=== PATIENT | male | born 1935 | race Caucasian/White ===

== ENCOUNTER 2017-11-01 02:17 | Emergency (ER) | payer OTHER ==
[~2017-11-01] VITALS: Ht 177.8 cm; Wt 63.5 kg
[~2017-11-01 02:17] MED LIST: AUGMENTIN 875875 MG PO; BACTRIM DS TAB1 EACH PO; CIPROFLOXACIN500 M1 PO; DIFLUCAN200 MG PO; EPOGEN2000 UNIT/ SUBQ; NORCO 5-325 TA1 EACH PO; PHENERGAN 25 MG25 M1 PO; PROTONIX40 M1 PO; SENOKOT-S1 TA1 PO; TYLENOL325 MG PO
[2017-11-01] MEDS ORDERED: OXYBUTYNIN 5 MG5 M2 PO (02:24)
[2017-11-01] MEDS ORDERED: IRON325 PO (02:24)
[2017-11-01 04:07] VITALS: BP 151/50
== END 2017-11-01 04:11 | disposition home or self-care (01) ==
LOC: M.ERS 02:17
DX: Z46.6 Encounter for fitting and adjustment of urinary device (principal)

== ENCOUNTER 2017-12-05 21:28 | Emergency (ER) | payer OTHER ==
[~2017-12-05] VITALS: Ht 180.3 cm; Wt 65.8 kg
[~2017-12-05 21:28] MED LIST changes: +IRON325 PO; +OXYBUTYNIN 5 MG5 M2 PO
[2017-12-05 23:17] VITALS: BP 118/78
== END 2017-12-05 23:19 | disposition home or self-care (01) ==
LOC: M.ERS 21:28
DX: T83.9XXA Unspecified complication of genitourinary prosthetic device, implant and graft, initial encounter (principal); Y92.89 Other specified places as the place of occurrence of the external cause

== ENCOUNTER 2017-12-31 02:11 | Emergency (ER) | payer OTHER ==
[~2017-12-31] VITALS: Ht 180.3 cm; Wt 70.3 kg
[2017-12-31 02:42] VITALS: BP 112/78
== END 2017-12-31 02:47 | disposition home or self-care (01) ==
LOC: M.ERS 02:11
DX: T83.098A Other mechanical complication of other urinary catheter, initial encounter (principal); Y84.8 Other medical procedures as the cause of abnormal reaction of the patient, or of later complication, without mention of misadventure at the time of the procedure; Y92.89 Other specified places as the place of occurrence of the external cause

== ENCOUNTER 2018-01-20 11:59 | Emergency (ER) | payer OTHER ==
[~2018-01-20] VITALS: Ht 180.3 cm; Wt 68.2 kg
[2018-01-20 13:26] LABS: ABSOLUTE EOSINOPHILS 0.1 thou/uL (0.0-0.7); ABSOLUTE MONOCYTES 0.6 thou/uL (0.0-1.2); ABSOLUTE NEUTROPHILS 2.8 thou/uL (1.6-8.1); BASOPHILS 0.5 %; HEMATOCRIT 30.3 % (42.0-52.0); HEMOGLOBIN 10.1 gm/dL (14.0-18.0); LYMPHOCYTES 22.1 %; MCH 28.5 pg (26.0-34.0); MCHC 33.2 g/dL (28.0-37.0); MCV 85.9 fL (80.0-100.0); MONOCYTES 12.5 %; MPV 7.5 fl. (7.2-11.1); NUCLEATED RBCS 0 /100WBC; PLATELET COUNT* 192 thou/uL (150-400); POLYS 62.9 %; RBC 3.53 mil/uL (4.50-6.00); RDW-CV 14.8 % (10.5-14.5); WBC 4.5 thou/uL (4.0-11.0)
[2018-01-20 13:36] LABS: CALCIUM 8.8 mg/dL (8.5-10.1); CREATININE 2.9 mg/dL (0.6-1.3)
[2018-01-20 13:39] LABS: POTASSIUM 5.2 mmol/L (3.5-5.1)
[2018-01-20 13:41] LABS: ALBUMIN 3.4 g/dL (3.4-5.0); TOTAL BILIRUBIN 0.2 mg/dL (<0.1-1.0); TOTAL PROTEIN 7.5 g/dL (6.4-8.2)
[2018-01-20 17:14] LABS: URINE BILIRUBIN NEGATIVE (Negative); URINE BLOOD 3+ (Negative); URINE CLARITY CLOUDY; URINE COLOR RED; URINE GLUCOSE-RANDOM NEGATIVE (Negative); URINE KETONES NEGATIVE (Negative); URINE PROTEIN 3+ (Negative)
[2018-01-20 17:16] LABS: URINE LEUKOCYTES-REFLEX 3+ (Negative); URINE NITRITE-REFLEX POSITIVE (Negative)
[2018-01-20 17:24] LABS: SQUAMOUS 4-10 Moderate /LPF (0-3)
[2018-01-20 17:25] LABS: BACTERIA-REFLEX 1-9 Few /HPF (None Seen); CASTS None Seen /LPF (None Seen); CRYSTALS None Seen /LPF (None Seen); URINE RBC 3-10 Few /HPF (0-2); URINE WBC-REFLEX 0-5 Rare /HPF (0-5)
[2018-01-20] MEDS ORDERED: AUGMENTIN 875-1 EACH PO (18:53)
[2018-01-20 19:37] VITALS: BP 135/64
== END 2018-01-20 19:38 | disposition home or self-care (01) ==
LOC: M.ERS 11:59
PROVIDERS: Nurse Practitioner Family
DX: T83.9XXA Unspecified complication of genitourinary prosthetic device, implant and graft, initial encounter (principal); N39.0 Urinary tract infection, site not specified; X58.XXXA Exposure to other specified factors, initial encounter

== ENCOUNTER 2018-02-14 06:11 | Emergency (ER) | payer OTHER ==
[~2018-02-14] VITALS: Ht 180.3 cm; Wt 67.5 kg
[~2018-02-14 06:11] MED LIST changes: +AUGMENTIN 875-1 EACH PO
[2018-02-14 07:15] LABS: ABSOLUTE EOSINOPHILS 0.2 thou/uL (0.0-0.7); ABSOLUTE MONOCYTES 0.4 thou/uL (0.0-1.2); ABSOLUTE NEUTROPHILS 2.1 thou/uL (1.6-8.1); EOSINOPHILS 6.2 %; HEMATOCRIT 30.5 % (42.0-52.0); HEMOGLOBIN 10.2 gm/dL (14.0-18.0); MCH 28.5 pg (26.0-34.0); MCHC 33.4 g/dL (28.0-37.0); MCV 85.3 fL (80.0-100.0); MONOCYTES 10.8 %; MPV 7.6 fl. (7.2-11.1); NUCLEATED RBCS 0 /100WBC; PLATELET COUNT* 163 thou/uL (150-400); RBC 3.57 mil/uL (4.50-6.00); RDW-CV 14.4 % (10.5-14.5); WBC 3.7 thou/uL (4.0-11.0)
[2018-02-14 07:28] LABS: CALCIUM 8.8 mg/dL (8.5-10.1); CREATININE 2.8 mg/dL (0.6-1.3); POTASSIUM 4.5 mmol/L (3.5-5.1)
[2018-02-14 07:32] LABS: ALBUMIN 3.4 g/dL (3.4-5.0); TOTAL BILIRUBIN 0.3 mg/dL (<0.1-1.0); TOTAL PROTEIN 7.2 g/dL (6.4-8.2)
[2018-02-14 07:48] VITALS: BP 133/56
== END 2018-02-14 07:49 | disposition home or self-care (01) ==
LOC: M.ERS 06:11
PROVIDERS: Personal Emergency Response Attendant
DX: T83.098A Other mechanical complication of other urinary catheter, initial encounter (principal); Y84.8 Other medical procedures as the cause of abnormal reaction of the patient, or of later complication, without mention of misadventure at the time of the procedure; Y92.89 Other specified places as the place of occurrence of the external cause

== ENCOUNTER 2018-04-02 17:14 | Emergency (ER) | payer OTHER ==
[~2018-04-02] VITALS: Ht 182.9 cm; Wt 68.0 kg
[2018-04-02] MEDS ORDERED: VITAMIN B122500 MCG PO (17:20)
[2018-04-02] MEDS ORDERED: KEFLEX500 M1 PO (18:18)
[2018-04-02 18:24] VITALS: BP 137/64
== END 2018-04-02 18:34 | disposition home or self-care (01) ==
LOC: M.ERS 17:14
DX: Z46.6 Encounter for fitting and adjustment of urinary device (principal); N39.0 Urinary tract infection, site not specified

== ENCOUNTER 2018-04-27 18:06 | Emergency (ER) | payer OTHER ==
[~2018-04-27] VITALS: Ht 180.3 cm; Wt 68.0 kg
[~2018-04-27 18:06] MED LIST changes: +KEFLEX500 M1 PO; +VITAMIN B122500 MCG PO
[2018-04-27 18:47] VITALS: BP 131/57
== END 2018-04-27 18:48 | disposition home or self-care (01) ==
LOC: M.ERS 18:06
DX: T83.038A Leakage of other urinary catheter, initial encounter (principal)

== ENCOUNTER 2018-09-06 17:04 | Emergency (ER) | payer OTHER ==
[~2018-09-06] VITALS: Ht 180.3 cm; Wt 68.1 kg
[2018-09-06 17:40] VITALS: BP 166/77
== END 2018-09-06 17:44 | disposition home or self-care (01) ==
LOC: M.ERS 17:04
DX: T83.098A Other mechanical complication of other urinary catheter, initial encounter (principal); Y84.8 Other medical procedures as the cause of abnormal reaction of the patient, or of later complication, without mention of misadventure at the time of the procedure; Y92.89 Other specified places as the place of occurrence of the external cause

== ENCOUNTER 2018-09-28 16:01 | Emergency (ER) | payer OTHER ==
[~2018-09-28] VITALS: Ht 180.3 cm; Wt 68.5 kg
[2018-09-28 16:44] LABS: URINE BILIRUBIN NEGATIVE (Negative); URINE BLOOD 3+ (Negative); URINE CLARITY CLOUDY; URINE COLOR YELLOW; URINE GLUCOSE-RANDOM NEGATIVE (Negative); URINE KETONES NEGATIVE (Negative); URINE LEUKOCYTES-REFLEX 3+ (Negative); URINE NITRITE-REFLEX NEGATIVE (Negative); URINE PROTEIN 2+ (Negative); URINE UROBILINOGEN 0.2 E.U./dl (0.2-1.0)
[2018-09-28 16:52] LABS: SQUAMOUS 0-3 Few /LPF (0-3); URINE RBC >20 Many /HPF (0-2); URINE WBC-REFLEX >25 Many /HPF (0-5)
[2018-09-28 16:53] LABS: BACTERIA-REFLEX 1-9 Few /HPF (None Seen); CASTS None Seen /LPF (None Seen); CRYSTALS None Seen /LPF (None Seen); MUCUS None Seen strn/LPF (None Seen); WBC CLUMPS Moderate (None Seen)
[2018-09-28] MEDS ORDERED: KEFLEX500 M1 PO (17:36)
[2018-09-28 17:58] VITALS: BP 150/50
== END 2018-09-28 18:00 | disposition home or self-care (01) ==
LOC: M.ERS 16:01
PROVIDERS: Nurse Practitioner Family
DX: T83.098A Other mechanical complication of other urinary catheter, initial encounter (principal); N39.0 Urinary tract infection, site not specified; Y84.9 Medical procedure, unspecified as the cause of abnormal reaction of the patient, or of later complication, without mention of misadventure at the time of the procedure; Y92.89 Other specified places as the place of occurrence of the external cause

== ENCOUNTER 2019-01-09 22:52 | Emergency (ER) | payer OTHER ==
[~2019-01-09] VITALS: Ht 182.9 cm; Wt 68.0 kg
[2019-01-09 23:36] LABS: URINE BILIRUBIN NEGATIVE (Negative); URINE BLOOD 3+ (Negative); URINE CLARITY CLOUDY; URINE COLOR YELLOW; URINE GLUCOSE-RANDOM NEGATIVE (Negative); URINE KETONES NEGATIVE (Negative); URINE NITRITE-REFLEX NEGATIVE (Negative); URINE PROTEIN 2+ (Negative); URINE UROBILINOGEN 0.2 E.U./dl (0.2-1.0)
[2019-01-09 23:45] LABS: URINE LEUKOCYTES-REFLEX 3+ (Negative)
[2019-01-10 00:37] LABS: CASTS None Seen /LPF (None Seen); SQUAMOUS NONE SEEN /LPF (0-3)
[2019-01-10 00:38] LABS: URINE WBC-REFLEX >25 Many /HPF (0-5)
[2019-01-10 00:39] LABS: BACTERIA-REFLEX >30 Many /HPF (None Seen); CRYSTALS None Seen /LPF (None Seen)
[2019-01-10] MEDS ORDERED: BACTRIM DS TAB1 EACH PO (00:40)
[2019-01-10 00:54] VITALS: BP 158/78
== END 2019-01-10 00:42 | disposition home or self-care (01) ==
LOC: M.ERS 22:52
PROVIDERS: Physician Assistant
DX: T83.090A Other mechanical complication of cystostomy catheter, initial encounter (principal); Y84.8 Other medical procedures as the cause of abnormal reaction of the patient, or of later complication, without mention of misadventure at the time of the procedure; Y92.89 Other specified places as the place of occurrence of the external cause

== ENCOUNTER 2019-02-08 04:50 | Emergency (ER) | payer OTHER ==
[~2019-02-08] VITALS: Ht 180.3 cm; Wt 67.1 kg
[2019-02-08 04:56] VITALS: BP 130/67
[2019-02-08] MEDS ORDERED: VITAMIN D3400 UNIT (04:59)
== END 2019-02-08 05:30 | disposition home or self-care (01) ==
LOC: M.ERS 04:50
DX: T83.098A Other mechanical complication of other urinary catheter, initial encounter (principal)

== ENCOUNTER 2019-02-28 06:30 | Emergency (ER) | payer OTHER ==
[~2019-02-28] VITALS: Ht 180.3 cm; Wt 68.0 kg
[~2019-02-28 06:30] MED LIST changes: +VITAMIN D3400 UNIT
[2019-02-28 07:55] LABS: URINE BILIRUBIN NEGATIVE (Negative); URINE BLOOD 3+ (Negative); URINE CLARITY SL CLOUDY; URINE COLOR STRAW; URINE GLUCOSE-RANDOM NEGATIVE (Negative); URINE KETONES NEGATIVE (Negative); URINE NITRITE-REFLEX NEGATIVE (Negative); URINE PROTEIN 2+ (Negative); URINE SPECIFIC GRAVITY 1.015 (1.005-1.030); URINE UROBILINOGEN 0.2 E.U./dl (0.2-1.0)
[2019-02-28 07:56] LABS: URINE LEUKOCYTES-REFLEX 3+ (Negative)
[2019-02-28] MEDS ORDERED: AUGMENTIN 875-1 EACH PO (08:03)
[2019-02-28 08:10] VITALS: BP 138/51
[2019-02-28 08:10] LABS: BACTERIA-REFLEX 1-9 Few /HPF (None Seen); CASTS None Seen /LPF (None Seen); CRYSTALS None Seen /LPF (None Seen); MUCUS 0-3 Light strn/LPF (None Seen); SQUAMOUS 0-3 Few /LPF (0-3); URINE RBC >20 Many /HPF (0-2)
== END 2019-02-28 08:12 | disposition home or self-care (01) ==
LOC: M.ERS 06:30
PROVIDERS: Emergency Medicine
DX: T83.098A Other mechanical complication of other urinary catheter, initial encounter (principal); Y84.8 Other medical procedures as the cause of abnormal reaction of the patient, or of later complication, without mention of misadventure at the time of the procedure; Y92.89 Other specified places as the place of occurrence of the external cause

== ENCOUNTER 2019-03-14 09:46 | Emergency (ER) | payer OTHER ==
[~2019-03-14] VITALS: Ht 180.3 cm; Wt 72.6 kg
[2019-03-14 10:42] VITALS: BP 145/80
== END 2019-03-14 10:44 | disposition home or self-care (01) ==
LOC: M.ERS 09:46
DX: T83.098A Other mechanical complication of other urinary catheter, initial encounter (principal)

== ENCOUNTER 2019-11-19 07:00 | Emergency (ER) | payer OTHER ==
[~2019-11-19] VITALS: Ht 180.3 cm; Wt 61.2 kg
[2019-11-19 07:36] VITALS: BP 134/93
== END 2019-11-19 07:38 | disposition home or self-care (01) ==
LOC: M.ERS 07:00
DX: T83.010A Breakdown (mechanical) of cystostomy catheter, initial encounter (principal); Y92.89 Other specified places as the place of occurrence of the external cause

== ENCOUNTER 2021-07-18 06:07 | Inpatient (IN) | payer OTHER ==
[~2021-07-18] VITALS: Ht 185.4 cm; Wt 73.0 kg
[~2021-07-18 06:07] MED LIST changes: +IRON 100 PLUS1 EACH PO
[2021-07-18 07:14] LABS: HEMATOCRIT 29.7 % (42.0-52.0); HEMOGLOBIN 9.6 gm/dL (14.0-18.0); MCH 27.5 pg (26.0-34.0); MCHC 32.5 g/dL (28.0-37.0); MCV 84.8 fL (80.0-100.0); RBC 3.51 mil/uL (4.50-6.00); RDW-CV 14.7 % (10.5-14.5); WBC 6.7 thou/uL (4.0-11.0)
[2021-07-18 07:23] LABS: CALCIUM 8.8 mg/dL (8.5-10.1); CREATININE 3.2 mg/dL (0.6-1.3); POTASSIUM 5.4 mmol/L (3.5-5.1)
--- NOTE | 2021-07-18 11:17 | EKG ---
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 : 1935 Requested By: Elmer Andrade Order Number: [id number] Reading MD: Miquel Barrientos Measurements Intervals [place] Rate: 77 P: 51 [place]: 180 QRS: 63 QRSD: 82 T: 55 QT: 375 QTc: 425 Interpretive Statements Sinus rhythm Abnormal R-wave progression, early transition Compared to ECG 04/24/2017 22:39:54 Left ventricular hypertrophy no longer present Electronically Signed On 07-18-2021 11:16:56 CDT by Miquel Barrientos [email or web address] <ELECTRONICALLY SIGNED> By: Miquel Barrientos MD, FACC 07/18/21 1116 0 0 Miquel Barrientos MD, [facility] /EPI
[2021-07-18 14:00] VITALS: BP 134/68
[2021-07-18 20:00] VITALS: BP 140/72
[2021-07-19] VITALS (11 sets, daily range): BP systolic 115–149; BP diastolic 37–66
[2021-07-19 20:24] LABS: HEMATOCRIT 34.8 % (42.0-52.0); HEMOGLOBIN 11.4 gm/dL (14.0-18.0); MCH 27.2 pg (26.0-34.0); MCHC 32.7 g/dL (28.0-37.0); MCV 83.1 fL (80.0-100.0); MPV 7.8 fl. (7.2-11.1); RBC 4.18 mil/uL (4.50-6.00); RDW-CV 14.9 % (10.5-14.5); WBC 11.7 thou/uL (4.0-11.0)
[2021-07-19 20:37] LABS: ALBUMIN 2.4 g/dL (3.4-5.0); CALCIUM 8.7 mg/dL (8.5-10.1); CREATININE 3.6 mg/dL (0.6-1.3); MAGNESIUM 2.6 mg/dL (1.8-2.4); PHOSPHORUS* 4.3 mg/dL (2.5-4.9); POTASSIUM 5.5 mmol/L (3.5-5.1); TOTAL BILIRUBIN 0.4 mg/dL (<0.1-1.0); TOTAL PROTEIN 6.5 g/dL (6.4-8.2)
[2021-07-19 22:59] LABS: URINE BILIRUBIN NEGATIVE (Negative); URINE BLOOD 3+ (Negative); URINE CLARITY SL CLOUDY; URINE COLOR RED; URINE GLUCOSE-RANDOM TRACE (Negative); URINE KETONES NEGATIVE (Negative); URINE LEUKOCYTES-REFLEX TRACE (Negative); URINE NITRITE-REFLEX NEGATIVE (Negative); URINE PROTEIN 3+ (Negative); URINE SPECIFIC GRAVITY <= 1.005 (1.005-1.030); URINE UROBILINOGEN 0.2 E.U./dl (0.2-1.0)
[2021-07-19 23:09] LABS: SQUAMOUS 0-3 Few /LPF (0-3)
[2021-07-19 23:10] LABS: BACTERIA-REFLEX 1-9 Few /HPF (None Seen); URINE RBC >20 Many /HPF (0-2); URINE WBC-REFLEX 0-5 Rare /HPF (0-5)
[2021-07-19 23:11] LABS: CASTS None Seen /LPF (None Seen); CRYSTALS None Seen /LPF (None Seen); MUCUS 0-3 Light strn/LPF (None Seen)
[2021-07-20] VITALS (18 sets, daily range): BP systolic 98–127; BP diastolic 43–90
[2021-07-20 05:04] LABS: CALCIUM 8.3 mg/dL (8.5-10.1); CREATININE 3.7 mg/dL (0.6-1.3); POTASSIUM 5.8 mmol/L (3.5-5.1)
[2021-07-20 10:35] LABS: HEMATOCRIT 32.6 % (42.0-52.0); HEMOGLOBIN 10.4 gm/dL (14.0-18.0); MCH 26.8 pg (26.0-34.0); MCHC 31.9 g/dL (28.0-37.0); MCV 84.2 fL (80.0-100.0); MPV 7.5 fl. (7.2-11.1); NUCLEATED RBCS 0 /100WBC; PLATELET COUNT* 276 thou/uL (150-400); RBC 3.87 mil/uL (4.50-6.00); WBC 11.4 thou/uL (4.0-11.0)
[2021-07-20 10:54] LABS: CALCIUM 8.5 mg/dL (8.5-10.1); MAGNESIUM 2.9 mg/dL (1.8-2.4); PHOSPHORUS* 4.9 mg/dL (2.5-4.9); TOTAL BILIRUBIN 0.3 mg/dL (<0.1-1.0)
[2021-07-20 11:31] LABS: ABSOLUTE LYMPHOCYTES 0.6 thou/uL (0.8-5.3); ABSOLUTE MONOCYTES 0.2 thou/uL (0.0-1.2); ABSOLUTE NEUTROPHILS 10.6 thou/uL (1.6-8.1); ANISOCYTOSIS 1+; PLATELET ESTIMATE ADEQUATE; POIKILOCYTOSIS 1+
[2021-07-21 00:31] VITALS: BP 147/63
[2021-07-21 04:00] VITALS: BP 140/50
[2021-07-21 04:38] LABS: ABSOLUTE LYMPHOCYTES 0.2 thou/uL (0.8-5.3); ABSOLUTE MONOCYTES 0.3 thou/uL (0.0-1.2); ABSOLUTE NEUTROPHILS 9.3 thou/uL (1.6-8.1); BASOPHILS 0.1 %; HEMATOCRIT 29.1 % (42.0-52.0); HEMOGLOBIN 9.5 gm/dL (14.0-18.0); LYMPHOCYTES 2.4 %; MCH 27.6 pg (26.0-34.0); MCHC 32.6 g/dL (28.0-37.0); MCV 84.8 fL (80.0-100.0); MPV 7.8 fl. (7.2-11.1); NUCLEATED RBCS 0 /100WBC; PLATELET COUNT* 249 thou/uL (150-400); POLYS 94.5 %; RBC 3.43 mil/uL (4.50-6.00); RDW-CV 15.4 % (10.5-14.5); WBC 9.8 thou/uL (4.0-11.0)
[2021-07-21 04:45] LABS: CREATININE 4.8 mg/dL (0.6-1.3)
[2021-07-21 04:54] LABS: POTASSIUM 6.1 mmol/L (3.5-5.1)
[2021-07-21 08:00] VITALS: BP 140/66
--- NOTE | 2021-07-21 10:24 | EKG ---
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 : 1935 Requested By: Magy Fragoso Order Number: [id number] Reading MD: Miquel Barrientos Measurements Intervals [place] Rate: 123 P: 56 [place]: 160 QRS: 51 QRSD: 92 T: 42 QT: 312 QTc: 447 Interpretive Statements Sinus tachycardia Low voltage, extremity and precordial leads Compared to ECG 07/18/2021 07:11:10 Low QRS voltage now present Sinus rhythm no longer present Electronically Signed On 07-21-2021 10:24:30 CDT by Miquel Barrientos [email or web address] <ELECTRONICALLY SIGNED> By: Miquel Barrientos MD, FACC 07/21/21 1024 1548 1548 Miquel Barrientos MD, [facility] /EPI
[2021-07-21 20:53] LABS: CALCIUM 9.3 mg/dL (8.5-10.1); CREATININE 5.2 mg/dL (0.6-1.3); POTASSIUM 5.6 mmol/L (3.5-5.1)
[2021-07-21 22:00] VITALS: BP 135/60
[2021-07-22] VITALS: BP 144/70
[2021-07-22 04:00] VITALS: BP 159/69
[2021-07-22 07:48] LABS: CREATININE 5.3 mg/dL (0.6-1.3); POTASSIUM 5.8 mmol/L (3.5-5.1)
[2021-07-22 08:37] VITALS: BP 154/67
[2021-07-22 12:23] VITALS: BP 154/77
[2021-07-22 16:06] VITALS: BP 165/69
[2021-07-22 20:00] VITALS: BP 168/66
[2021-07-23 00:31] VITALS: BP 168/76
[2021-07-23 03:54] LABS: HEMATOCRIT 27.1 % (42.0-52.0); MCH 27.4 pg (26.0-34.0); MCHC 33.2 g/dL (28.0-37.0); MCV 82.6 fL (80.0-100.0); NUCLEATED RBCS 0 /100WBC; PLATELET COUNT* 254 thou/uL (150-400); RBC 3.28 mil/uL (4.50-6.00); RDW-CV 15.3 % (10.5-14.5); WBC 6.9 thou/uL (4.0-11.0)
[2021-07-23 04:09] LABS: ALBUMIN 1.6 g/dL (3.4-5.0); CREATININE 5.4 mg/dL (0.6-1.3); POTASSIUM 5.9 mmol/L (3.5-5.1); TOTAL BILIRUBIN 0.4 mg/dL (<0.1-1.0); TOTAL PROTEIN 6.1 g/dL (6.4-8.2)
[2021-07-23 04:47] VITALS: BP 157/69
[2021-07-23 06:43] LABS: ABSOLUTE LYMPHOCYTES 0.4 thou/uL (0.8-5.3); ABSOLUTE MONOCYTES 0.4 thou/uL (0.0-1.2); ABSOLUTE NEUTROPHILS 6.1 thou/uL (1.6-8.1)
[2021-07-23 06:45] LABS: PLATELET ESTIMATE ADEQUATE
[2021-07-23 06:46] LABS: HYPOCHROMASIA 1+
[2021-07-23 08:00] VITALS: BP 155/66
--- NOTE | 2021-07-23 11:08 | PATH ---
[address] [address] PATHOLOGY RPT PROCEDURE Name: JACLYN DISLA Room: [address] IN M.R.#: [id number] Admission: 07/18/21 Date of : 33 Discharge: Report #: [id number] Path Case #: [id number] [facility] Accession Number: [id number] . 01 Material submitted: . inguinal area - RIGHT INGUINAL HERNIA SAC. Modifiers: right . 01 Clinical history: . LAPAROSCOPIC HERNIA REPAIR/INGUINAL, UNILAT . 02 Diagnosis: Right inguinal hernia sac: - Benign, mesothelial-lined, fibromembranous/fibromuscular/fibrofatty tissue. (KACIE:nikko; 07/22/2021) QMS 07/22/2021 1234 Local . 02 Electronically signed: . Sekou Martinez MD, Pathologist NPI- [id number] . 01 Gross description: . Fixative: Formalin Labeled: Hernia sac Specimen received: Intact segment of light [place]-addison to light birmingham-pink and yellow fibromembranous tissue Dimensions: 10.3 x 5.3 x 1.3 cm Abnormalities: None identified Submitted representatively in cassette A1. ([facility]; 07/18/2021) [facility] 07/18/2021 1810 Local . 02 Pathologist provided ICD-10: K40.90 . 02 CPT . 437098 Specimen Comment: A courtesy copy of this report has been sent to [phone] Specimen Comment: Report sent to Specimen Comment: A duplicate report has been generated due to demographic updates. Performed at: [address] [id number] MD Regino Padilla MD Phone: [phone] Performed at: [address] [id number] [address] [address] PATHOLOGY RPT PROCEDURE Name: JACLYN DISLA Room: [address] IN M.R.#: [id number] Admission: 07/18/21 Date of : 33 Discharge: Report #: [id number] Path Case #: [id number] MD Sekou Martinez MD Phone: [phone]
[2021-07-23 12:00] VITALS: BP 122/74
[2021-07-23 16:00] VITALS: BP 161/66
[2021-07-23 20:00] VITALS: BP 158/85
[2021-07-24] VITALS (8 sets, daily range): BP systolic 147–213; BP diastolic 46–79
[2021-07-24 04:52] LABS: ALBUMIN 1.6 g/dL (3.4-5.0); CALCIUM 8.7 mg/dL (8.5-10.1); POTASSIUM 5.1 mmol/L (3.5-5.1); TOTAL BILIRUBIN 0.4 mg/dL (<0.1-1.0); TOTAL PROTEIN 6.2 g/dL (6.4-8.2)
[2021-07-24 05:04] LABS: CREATININE 4.4 mg/dL (0.6-1.3)
[2021-07-24 23:42] LABS: BE 1.8 mmol/L (-2 to +3); pH 7.322 (7.340-7.450)
[2021-07-24 23:43] LABS: PCO2 56.2 mmHg (35.0-45.0); PO2 282.4 mmHg (75.0-100.0)
[2021-07-25] VITALS (112 sets, daily range): BP systolic 75–214; BP diastolic 22–56
[2021-07-25 03:01] LABS: ABSOLUTE LYMPHOCYTES 0.2 thou/uL (0.8-5.3); ABSOLUTE MONOCYTES 0.5 thou/uL (0.0-1.2); ABSOLUTE NEUTROPHILS 12.1 thou/uL (1.6-8.1); HEMATOCRIT 25.1 % (42.0-52.0); HEMOGLOBIN 8.1 gm/dL (14.0-18.0); LYMPHOCYTES 1.7 %; MCH 26.9 pg (26.0-34.0); MCHC 32.2 g/dL (28.0-37.0); MCV 83.5 fL (80.0-100.0); MONOCYTES 4.2 %; MPV 7.7 fl. (7.2-11.1); NUCLEATED RBCS 0 /100WBC; PLATELET COUNT* 288 thou/uL (150-400); POLYS 94.1 %; RBC 3.01 mil/uL (4.50-6.00); WBC 12.9 thou/uL (4.0-11.0)
[2021-07-25 03:30] LABS: ALBUMIN 1.5 g/dL (3.4-5.0); CALCIUM 7.9 mg/dL (8.5-10.1); CREATININE 4.8 mg/dL (0.6-1.3); POTASSIUM 5.4 mmol/L (3.5-5.1); TOTAL BILIRUBIN 0.4 mg/dL (<0.1-1.0); TOTAL PROTEIN 5.2 g/dL (6.4-8.2)
[2021-07-25 04:06] LABS: HEPATITIS B SURFACE AG Negative (Negative)
--- NOTE | 2021-07-25 11:00 | OP ---
[facility] [address] [place] [address] OPERATIVE REPORT Name: JACLYN DISLA Room: [address] ADM IN M.R.#: [id number] Admission: 07/18/21 Attend Phys: Elmer Andrade Discharge: Date of : 34 Report #: [id number] THIS REPORT FOR: cc: FAM - No family physician/PCP FAM - No family physician/PCP Elmer Andrade MD ~ DATE OF SURGERY: 07/24/2021 PREOPERATIVE DIAGNOSIS: Bowel perforation. POSTOPERATIVE DIAGNOSIS: Small bowel perforation. OPERATION: Exploratory laparotomy with small bowel resection and end ileostomy. SURGEON: lEmer Andrade MD FACILITIES TECHNICIAN: Ignacio Ayala MD ANESTHESIA: General. ESTIMATED BLOOD LOSS: 100 mL SPECIMENS: Small bowel segment. DRAINS: None. DESCRIPTION OF PROCEDURE: After informed consent was obtained, the patient was brought to the operating room and placed supine. SCDs were placed and working, preoperative antibiotics were administered, general anesthesia was induced. The abdomen was prepped and draped in the usual sterile fashion. A midline laparotomy incision was made from above the umbilicus down to 2 cm below the umbilicus. Fascia was incised and a retractor was placed. Immediately upon entering the abdomen, there was a succuss that began emanating from the incision. I was able to suction all of this out and it was clear. It was coming from a segment of small bowel that had a perforation. This was fairly wide perforation of the small bowel and I could see both lumens. The small bowel content was suctioned out. There was a significant amount of succuss in the right upper quadrant. This was all suctioned out. I then irrigated the area with warm normal saline. I then ran the small bowel and the colon. The colon was normal. The small bowel was run from the ligament of Treitz down to the cecum. Approximately 40 cm from the cecum was the area of perforation. The distal segment was stapled off with a WIN blue load stapler. The proximal segment was stapled off as well and the mesentery was ligated using a LigaSure device and the specimen was then sent off. Again, the abdomen was copiously irrigated with normal saline. I irrigated the right side of the abdomen. The proximal segment of the small bowel was then brought [place] [address] OPERATIVE REPORT Name: JACLYN DISLA Room: [address] IN R.#: [id number] Admission: 07/18/21 Attend Phys: Elmer Andrade Discharge: Date of : 34 Report #: [id number] the right upper quadrant of the abdomen through a hole in the fascia. The fascia was reapproximated with running 0 PDS suture. Skin was closed with sarwat. I then fashioned a Makenzie type ileostomy using 3-0 Vicryl sutures. Sterile dressings and ostomy appliance were placed. COMPLICATIONS: None. DISPOSITION: The patient was taken to ICU in guarded condition. <ELECTRONICALLY SIGNED> By: Elmer Andrade MD 07/25/211099 58 09Elmer Andrade MD /nt
--- NOTE | 2021-07-25 11:00 | OP ---
[facility] [address] [place] [address] OPERATIVE REPORT Name: JACLYN DISLA Room: [address] ADM IN M.R.#: [id number] Admission: 07/18/21 Attend Phys: Elmer Andrade Discharge: Date of : 34 Report #: [id number] THIS REPORT FOR: cc: FAM - No family physician/PCP FAM - No family physician/PCP Elmer Andrade MD ~ DATE OF SURGERY: 07/18/2021 PREOPERATIVE DIAGNOSIS: Right inguinal hernia. POSTOPERATIVE DIAGNOSIS: Right inguinal hernia. OPERATION: Laparoscopic converted to right inguinal hernia repair with mesh. SURGEON: Elmer Andrade MD ANESTHESIA: General. ESTIMATED BLOOD LOSS: Minimal. SPECIMENS: Hernia sac. DESCRIPTION OF PROCEDURE: After informed consent was obtained, the patient was brought to the operating room and placed supine. SCDs were placed and working, preoperative antibiotics were administered, general anesthesia was induced. The abdomen was prepped and draped in the usual sterile fashion. A 10 mm incision was made above the umbilicus. Fascia was incised and a trocar was placed. Pneumoperitoneum was established. Right and left lower quadrant 5 mm trocars were placed. The peritoneum at the right ASIS was scored. Peritoneum was incised. During this dissection, I felt that this was not going to be possible laparoscopically. Therefore, I elected to convert to an open procedure. The Lema catheter was changed out and during this, there was noted to be blood in the Lema catheter. Therefore, I inserted the laparoscope and instilled the bladder with saline. There was no evidence of leak from the bladder. Laparoscope was then removed. Incision was made 1 cm above the right external inguinal ring. Dissection was made down through the subcutaneous tissue down to the aponeurosis of the external oblique. The aponeurosis was incised along the length of its fibers. The self-retaining retractor was placed. Cord structures were identified. He had a very large indirect hernia. The sac was fully reduced. A large Prolene mesh was then brought into the field. It [place] [address] OPERATIVE REPORT Name: JACLYN DISLA Room: M004-P [facility] IN R.#: [id number] Admission: 07/18/21 Attend Phys: Elmer Andrade Discharge: Date of : 34 Report #: [id number] nicely. It was sutured to the pubic tubercle with a 2-0 Prolene stitch. Then in an interrupted fashion, I sutured it to the shelving edge of inguinal ligament with interrupted 2-0 Prolenes. I then sutured it to the conjoined area with interrupted 2-0 Prolenes as well. The tails were tucked around the spermatic cord and placed behind the aponeurosis. The aponeurosis was then reapproximated with a running 2-0 Vicryl suture. The Bibi's fascia was reapproximated with a 3-0 Vicryl and the skin was closed with 4-0 Monocryl. Incisions were dressed with Steri-Strips and sterile gauze. COMPLICATIONS: None. DISPOSITION: The patient was taken to recovery in satisfactory condition. <ELECTRONICALLY SIGNED> By: Elmer Andrade MD 07/25/21 1100 1513 1617Elmer Andrade MD /nt
[2021-07-25 11:42] LABS: BE 5.7 mmol/L (-2 to +3); PCO2 43.6 mmHg (35.0-45.0); PO2 102.9 mmHg (75.0-100.0); pH 7.458 (7.340-7.450)
[2021-07-25 14:58] LABS: ABSOLUTE LYMPHOCYTES 0.4 thou/uL (0.8-5.3); ABSOLUTE MONOCYTES 0.4 thou/uL (0.0-1.2); ABSOLUTE NEUTROPHILS 10.5 thou/uL (1.6-8.1); BASOPHILS 0.1 %; EOSINOPHILS 0.2 %; HEMATOCRIT 20.2 % (42.0-52.0); LYMPHOCYTES 3.7 %; MCHC 32.5 g/dL (28.0-37.0); MONOCYTES 3.1 %; MPV 7.5 fl. (7.2-11.1); NUCLEATED RBCS 0 /100WBC; PLATELET COUNT* 223 thou/uL (150-400); POLYS 92.9 %; RBC 2.43 mil/uL (4.50-6.00); RDW-CV 15.7 % (10.5-14.5); WBC 11.3 thou/uL (4.0-11.0)
[2021-07-25 15:07] LABS: HEMOGLOBIN 6.5 gm/dL (14.0-18.0)
[2021-07-25 15:09] LABS: INR 1.1; PROTIME 11.3 Seconds (9.20-11.50)
[2021-07-25 15:11] LABS: ALBUMIN 1.7 g/dL (3.4-5.0); CALCIUM 7.6 mg/dL (8.5-10.1); MAGNESIUM 3.8 mg/dL (1.8-2.4); POTASSIUM 5.4 mmol/L (3.5-5.1); TOTAL BILIRUBIN 0.5 mg/dL (<0.1-1.0)
--- NOTE | 2021-07-25 16:36 | 2DMMODE ---
[place] [address] 2 D/M-MODE ECHOCARDIOGRAM Name: JACLYN DISLA Room: [address] ADM IN .R.#: [id number] Admission: 07/18/21 Attend Phys: Elmer Vega Discharge: Date of : 33 Date of Service: 07/25/21 1636 Report #: [id number] THIS REPORT FOR: cc: FAM - No family physician/PCP FAM - No family physician/PCP Miquel Barrientos MD [facility] ~ APPROVED REPORT Study performed: 07/25/2021 14:23:27 EXAM: Comprehensive 2D, Doppler, and color-flow Echocardiogram Patient Location: In-Patient Room #: 004 Status: routine BSA: 1.90 HR: 59 bpm BP: 119/22 mmHg Rhythm: NSR Other Information Study Quality: Good Indications Septic Shock 2D Dimensions IVSd: 8.31 (7-11mm) LVOT Diam: 20.79 (18-24mm) LVDd: 43.67 mm PWd: 8.55 (7-11mm) LVDs: 19.98 (25-40mm) Aortic Root: 30.48 mm Volumes Left Atrial Volume (Systole) LA ESV Index: 22.80 mL/m2 Aortic Valve AoV Peak Sal.: 2.33 m/s AO Peak Gr.: 21.80 mmHg LVOT Max P.94 mmHg AO Mean Gr.: 11.52 mmHg LVOT Mean P.20 mmHg LVOT Max V: 0.99 m/s AO V2 VTI: 39.46 cm LVOT Mean V: 0.70 m/s NHI (VTI): 1.67 cm2 LVOT V1 VTI: 19.46 [place] [address] 2 D/M-MODE ECHOCARDIOGRAM Name: JACLYN DISLA Room: [address] IN M.R.#: [id number] Admission: 07/18/21 Attend Phys: Elmer Vega Discharge: Date of : 33 Date of Service: 07/25/21 1636 Report #: [id number] Mitral Valve MV Mean Gr.: 2.39 mmHg E/A Ratio: 0.65 MV Decel. Time: 340.28 ms MV E Max Sal.: 0.87 m/s MV PHT: 98.68 ms MVA (PHT): 2.23 cm2 TDI E/Lateral E': 8.70 E/Medial E': 9.67 Medial E' Sal.: 0.09 m/s Lateral E' Sal.: 0.10 m/s Pulmonary Valve PV Peak Sal.: 1.48 m/s PV Peak Gr.: 8.75 mmHg Tricuspid Valve RAP Estimate: 5.00 mmHg TR Peak Gr.: 26.10 mmHg RVSP: 31.00 mmHg PA Pressure: 31.00 mmHg Left Ventricle The left ventricle is normal size. There is normal LV segmental wall motion. There is normal left ventricular wall thickness. Left ventricular systolic function is normal. The left ventricular ejection fraction is within the normal range. LVEF is 55-60%. Grade I - abnormal relaxation pattern. Right Ventricle The right ventricle is normal size. The right ventricular systolic function is normal. Atria The left atrium size is normal. The right atrium size is normal. Aortic Valve Aortic valve is calcified. No aortic regurgitation is present. Mild aortic stenosis. Mitral Valve There is mitral annular calcification. The mitral valve is normal in structure. There is no mitral valve regurgitation noted. Mild mitral stenosis. Tricuspid Valve The tricuspid valve is normal in [place] [address] 2 D/M-MODE ECHOCARDIOGRAM Name: JACLYN DISLA Room: [address] IN [facility]#: [id number] Admission: 07/18/21 Attend Phys: Elmer Vega Discharge: Date of : 33 Date of Service: 07/25/21 1636 Report #: [id number] regurgitation. estimated pa pressure 30 mm Hg Pulmonic Valve Pulmonic valve is not well visualized. There is no pulmonic valvular regurgitation. Great Vessels The aortic root is normal in size. IVC is normal in size and collapses >50% with inspiration. Pericardium There is no pericardial effusion. <Conclusion> LVEF is 55-60%. Mild aortic stenosis. <ELECTRONICALLY SIGNED> By: Miquel Barrientos MD, FACC 07/25/21 1636 163 163 Miquel Barrientos MD, FACC /INF
--- NOTE | 2021-07-25 16:58 | CON ---
[address] [address] CONSULTATION Name: JACLYN DISLA Room: [address] IN M.R.#: [id number] Admission: 07/18/21 Attend Phys: Elmer Andrade Discharge: Date of : 34 Report #: [id number] THIS REPORT FOR: cc: FAM - No family physician/PCP FAM - No family physician/PCP Critsobal Keller MD ~ DATE OF CONSULTATION: 07/25/2021 Consult has been requested by Dr. Andrade. INDICATION FOR CONSULTATION: Ventilator management. HISTORY OF PRESENT ILLNESS: An 86-year-old gentleman, past medical history is as mentioned below, I am not aware of a history of a cardiac or respiratory disease. I am also not aware of any history of smoking. The patient does appear to have some past history of renal failure, previous creatinines are noted to be in the range of 2.3-2.8, which may be his baseline. 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 The patient has undergone a hernia repair during this admission, also has had an exploratory laparotomy yesterday for a perforated bowel. He did have a hemodialysis briefly yesterday, which had to be discontinued prematurely for him to be taken to the OR. I am not aware of any previous history of dialysis before this admission. Currently, the patient is on the ventilator, 40% FiO2, 5 of PEEP. Propofol at 20, fentanyl 75 which I just asked to be increased to 100. He is ventilating and oxygenating adequately. He has minimal urine output. He is in shock. His Levophed is at 20. He does not appear to have fluid overload on exam. The patient is on the ventilator and unable to provide history or review of systems at this time. PAST MEDICAL HISTORY: Chronic renal failure, previous creatinines available are in the range of 2.3-2.8, this may represent his baseline. History of suprapubic catheter placement, left-sided pneumothorax, status post left-sided thoracotomy, no long-term respiratory or cardiac disease is known, urethral stenosis, bladder tumor. SOCIAL HISTORY: No known history of smoking, ethanol abuse, or drug abuse. CURRENT MEDICATIONS: List in Reasult reviewed. ALLERGIES: [place] [address] CONSULTATION Name: JACLYN DISLA Silas Room: [address] IN ..#: [id number] Admission: 07/18/21 Attend Phys: Elmer Andrade Discharge: Date of : 34 Report #: [id number] FAMILY HISTORY: No pertinent family history. PHYSICAL EXAMINATION: GENERAL: He is sedated with propofol and fentanyl as above. VITAL SIGNS: Has a pulse of 81 and a blood pressure of 93/36. He is on 20 of Levophed, saturating 99%, 40% FiO2, 5 of PEEP, tidal volume is set at 420 with respiratory rate of 18. He is not overbreathing the ventilator. He has a low-grade fever of 37.7. HEENT: Head is normocephalic and atraumatic. Endotracheal tube is in place. NECK: Does not show raised JVP, asymmetry, mass or lymph nodes. A dialysis catheter and central line are in place. CHEST: Breath sounds are bilaterally equal. I do not hear any added sounds. HEART: Regular. ABDOMEN: Nontender, soft. Surgical incision and colostomy are noted. EXTREMITIES: Lower extremities show no edema and no calf tenderness. SKIN: Dry and intact. NEUROLOGIC: Limited due to sedation. Chest x-ray is reviewed. There are small bilateral basilar opacities, which are more likely atelectasis. Infiltrates can also present a similar picture. There is no increase in pulmonary vascular congestion. There are some chronic changes. CT abdomen and pelvis repeated twice in [facility] reviewed. LABORATORY DATA: Lab work in [facility] reviewed. ASSESSMENT AND PLAN: 1. Acute respiratory failure. We will obtain an arterial blood gas and then we will adjust the ventilator accordingly. As he is postop, I have started him on a fentanyl drip. We will increase it to 100. For now, we will continue propofol, but we will see if we can cut it down. 2. Septic shock. He is on Zosyn. Discussion regarding administration of fluids and albumin as below. If blood pressure remains low, then we will consider adding hydrocortisone in the shock dose. 3. Perforated bowel/hernia repair. 4. Acute on chronic renal failure. He does not appear to be significantly fluid overloaded on my exam. I therefore agree with administration of fluids as already ordered by the primary service. I would recommend also giving him albumin. His albumin level is only 1.5. We will repeat labs at 2:00 p.m. today to reassess. 5. Deep vein thrombosis prophylaxis. He is noted to be on subcutaneous heparin. 6. Gastrointestinal prophylaxis. I will go ahead and start him on Protonix. 7. History of a suprapubic catheter. [facility] [address] [place] [address] CONSULTATION Name: JACLYN DISLA Room: [address] IN [facility].#: [id number] Admission: 07/18/21 Attend Phys: Elmer Andrade Discharge: Date of : 34 Report #: [id number] The patient is critically ill at this time. Total time spent providing critical care to this patient today exceeds 45 minutes. <ELECTRONICALLY SIGNED> By: Cristobal Keller MD 07/25/21 1658 1043 1130Cristobal Keller MD /nt
[2021-07-25 21:35] LABS: HEMATOCRIT 22.5 % (42.0-52.0); HEMOGLOBIN 7.6 gm/dL (14.0-18.0)
[2021-07-25 22:55] LABS: CALCIUM 7.5 mg/dL (8.5-10.1); CREATININE 4.5 mg/dL (0.6-1.3); POTASSIUM 4.6 mmol/L (3.5-5.1)
[2021-07-26] VITALS (78 sets, daily range): BP systolic 94–253; BP diastolic 26–86
[2021-07-26 01:10] LABS: ABSOLUTE EOSINOPHILS 0.1 thou/uL (0.0-0.7); ABSOLUTE LYMPHOCYTES 0.3 thou/uL (0.8-5.3); ABSOLUTE MONOCYTES 0.3 thou/uL (0.0-1.2); ABSOLUTE NEUTROPHILS 10.4 thou/uL (1.6-8.1); BASOPHILS 0.1 %; EOSINOPHILS 1.2 %; HEMATOCRIT 20.2 % (42.0-52.0); LYMPHOCYTES 2.9 %; MCH 28.1 pg (26.0-34.0); MCHC 33.4 g/dL (28.0-37.0); MCV 84.1 fL (80.0-100.0); MONOCYTES 2.8 %; MPV 7.5 fl. (7.2-11.1); NUCLEATED RBCS 0 /100WBC; RDW-CV 15.6 % (10.5-14.5); WBC 11.1 thou/uL (4.0-11.0)
[2021-07-26 01:18] LABS: PLATELET COUNT* 98 thou/uL (150-400)
[2021-07-26 01:19] LABS: HEMOGLOBIN 6.7 gm/dL (14.0-18.0)
[2021-07-26 01:20] LABS: PHOSPHORUS* 4.8 mg/dL (2.5-4.9)
[2021-07-26 01:47] LABS: ALBUMIN 2.3 g/dL (3.4-5.0); CALCIUM 7.5 mg/dL (8.5-10.1); CREATININE 3.9 mg/dL (0.6-1.3); MAGNESIUM 3.3 mg/dL (1.8-2.4); POTASSIUM 4.3 mmol/L (3.5-5.1); TOTAL BILIRUBIN 0.7 mg/dL (<0.1-1.0); TOTAL PROTEIN 5.1 g/dL (6.4-8.2)
[2021-07-26 05:25] LABS: HEMATOCRIT 22.6 % (42.0-52.0); HEMOGLOBIN 7.6 gm/dL (14.0-18.0); MCH 28.5 pg (26.0-34.0); MCHC 33.6 g/dL (28.0-37.0); MCV 84.7 fL (80.0-100.0); MPV 7.8 fl. (7.2-11.1); RBC 2.67 mil/uL (4.50-6.00); RDW-CV 15.6 % (10.5-14.5); WBC 10.9 thou/uL (4.0-11.0)
[2021-07-26 06:34] LABS: CALCIUM 7.7 mg/dL (8.5-10.1); CREATININE 3.5 mg/dL (0.6-1.3); MAGNESIUM 3.1 mg/dL (1.8-2.4); PHOSPHORUS* 4.8 mg/dL (2.5-4.9); POTASSIUM 4.6 mmol/L (3.5-5.1)
[2021-07-26 07:21] LABS: BE -1.4 mmol/L (-2 to +3); PCO2 38.3 mmHg (35.0-45.0); pH 7.401 (7.340-7.450)
[2021-07-26 07:23] LABS: PO2 146.5 mmHg (75.0-100.0)
[2021-07-26 08:46] LABS: HEMATOCRIT 24.1 % (42.0-52.0); MCH 28.1 pg (26.0-34.0); MCHC 33.2 g/dL (28.0-37.0); MCV 84.4 fL (80.0-100.0); MPV 7.3 fl. (7.2-11.1); NUCLEATED RBCS 0 /100WBC; PLATELET COUNT* 84 thou/uL (150-400); RBC 2.85 mil/uL (4.50-6.00); RDW-CV 15.1 % (10.5-14.5); WBC 14.3 thou/uL (4.0-11.0)
[2021-07-26 09:01] LABS: CALCIUM 7.4 mg/dL (8.5-10.1); CREATININE 3.5 mg/dL (0.6-1.3); MAGNESIUM 3.1 mg/dL (1.8-2.4); PHOSPHORUS* 4.7 mg/dL (2.5-4.9); POTASSIUM 4.4 mmol/L (3.5-5.1)
[2021-07-26 11:21] LABS: ABSOLUTE LYMPHOCYTES 0.6 thou/uL (0.8-5.3); ABSOLUTE MONOCYTES 0.4 thou/uL (0.0-1.2); ABSOLUTE NEUTROPHILS 13.3 thou/uL (1.6-8.1)
[2021-07-26 11:23] LABS: HYPOCHROMASIA 2+
[2021-07-26 11:24] LABS: PLATELET ESTIMATE DECREASED
[2021-07-26 11:25] LABS: OVALOCYTES 1+
[2021-07-26 13:07] LABS: ABSOLUTE EOSINOPHILS 0.2 thou/uL (0.0-0.7); ABSOLUTE LYMPHOCYTES 0.3 thou/uL (0.8-5.3); ABSOLUTE MONOCYTES 0.3 thou/uL (0.0-1.2); ABSOLUTE NEUTROPHILS 12.3 thou/uL (1.6-8.1); EOSINOPHILS 1.9 %; HEMATOCRIT 26.5 % (42.0-52.0); HEMOGLOBIN 8.9 gm/dL (14.0-18.0); LYMPHOCYTES 2.2 %; MCH 28.4 pg (26.0-34.0); MCHC 33.5 g/dL (28.0-37.0); MCV 84.8 fL (80.0-100.0); MONOCYTES 2.3 %; MPV 7.2 fl. (7.2-11.1); NUCLEATED RBCS 0 /100WBC; PLATELET COUNT* 89 thou/uL (150-400); POLYS 93.6 %; RBC 3.12 mil/uL (4.50-6.00); RDW-CV 15.3 % (10.5-14.5); WBC 13.1 thou/uL (4.0-11.0)
[2021-07-26 13:13] LABS: CALCIUM 7.8 mg/dL (8.5-10.1); CREATININE 3.6 mg/dL (0.6-1.3); MAGNESIUM 3.1 mg/dL (1.8-2.4); PHOSPHORUS* 4.6 mg/dL (2.5-4.9); POTASSIUM 4.5 mmol/L (3.5-5.1)
--- NOTE | 2021-07-26 13:26 | EKG ---
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
--- NOTE | 2021-07-26 13:27 | EKG ---
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 : 1935 Requested By: Cristobal Keller Order Number: [id number] Reading MD: Bert Tam Measurements Intervals [place] Rate: 85 P: [place]: QRS: 43 QRSD: 77 T: 52 QT: 411 QTc: 489 Interpretive Statements Accelerated junctional rhythm Minimal ST depression, lateral leads Borderline prolonged QT interval Compared to ECG 07/26/2021 02:16:42 Accelerated junctional rhythm now present ST (T wave) deviation now present Sinus bradycardia no longer present Electronically Signed On 07-26-2021 13:27:35 CDT by Bert Tam [email or web address] <ELECTRONICALLY SIGNED> By: Bert Tam MD, FACC 07/26/21 1327 121 1210 Bert aTm MD, FACC /EPI
[2021-07-26 16:54] LABS: ABSOLUTE EOSINOPHILS 0.3 thou/uL (0.0-0.7); ABSOLUTE LYMPHOCYTES 0.6 thou/uL (0.8-5.3); ABSOLUTE MONOCYTES 0.4 thou/uL (0.0-1.2); ABSOLUTE NEUTROPHILS 12.3 thou/uL (1.6-8.1); BASOPHILS 0.2 %; HEMATOCRIT 25.2 % (42.0-52.0); HEMOGLOBIN 8.5 gm/dL (14.0-18.0); LYMPHOCYTES 4.1 %; MCH 28.3 pg (26.0-34.0); MCHC 33.6 g/dL (28.0-37.0); MCV 84.2 fL (80.0-100.0); MONOCYTES 2.8 %; NUCLEATED RBCS 0 /100WBC; PLATELET COUNT* 79 thou/uL (150-400); POLYS 90.9 %; RDW-CV 15.3 % (10.5-14.5); WBC 13.6 thou/uL (4.0-11.0)
[2021-07-26 17:03] LABS: CALCIUM 7.8 mg/dL (8.5-10.1); MAGNESIUM 2.9 mg/dL (1.8-2.4); PHOSPHORUS* 3.8 mg/dL (2.5-4.9); POTASSIUM 4.5 mmol/L (3.5-5.1)
[2021-07-26 20:41] LABS: HEMATOCRIT 25.5 % (42.0-52.0); HEMOGLOBIN 8.4 gm/dL (14.0-18.0); MCH 27.9 pg (26.0-34.0); MCV 84.5 fL (80.0-100.0); MPV 8.4 fl. (7.2-11.1); NUCLEATED RBCS 0 /100WBC; PLATELET COUNT* 77 thou/uL (150-400); RBC 3.02 mil/uL (4.50-6.00); RDW-CV 15.2 % (10.5-14.5)
[2021-07-26 21:05] LABS: CALCIUM 7.7 mg/dL (8.5-10.1); CREATININE 2.5 mg/dL (0.6-1.3); MAGNESIUM 2.5 mg/dL (1.8-2.4); PHOSPHORUS* 3.2 mg/dL (2.5-4.9); POTASSIUM 4.5 mmol/L (3.5-5.1)
[2021-07-26 21:30] LABS: ABSOLUTE LYMPHOCYTES 0.5 thou/uL (0.8-5.3); ABSOLUTE MONOCYTES 0.3 thou/uL (0.0-1.2); ABSOLUTE NEUTROPHILS 15.2 thou/uL (1.6-8.1); ANISOCYTOSIS Occasional; PLATELET ESTIMATE DECREASED; POIKILOCYTOSIS Occasional; TOXIC GRANULATION 2+
[2021-07-27] VITALS (42 sets, daily range): BP systolic 100–155; BP diastolic 26–105
[2021-07-27 00:36] LABS: ABSOLUTE EOSINOPHILS 0.2 thou/uL (0.0-0.7); ABSOLUTE LYMPHOCYTES 0.3 thou/uL (0.8-5.3); ABSOLUTE MONOCYTES 0.5 thou/uL (0.0-1.2); ABSOLUTE NEUTROPHILS 14.6 thou/uL (1.6-8.1); BASOPHILS 0.1 %; EOSINOPHILS 1.3 %; HEMATOCRIT 24.1 % (42.0-52.0); LYMPHOCYTES 1.8 %; MCH 28.2 pg (26.0-34.0); MCHC 33.3 g/dL (28.0-37.0); MCV 84.7 fL (80.0-100.0); MONOCYTES 3.2 %; MPV 8.2 fl. (7.2-11.1); NUCLEATED RBCS 0 /100WBC; PLATELET COUNT* 74 thou/uL (150-400); POLYS 93.6 %; RBC 2.85 mil/uL (4.50-6.00); RDW-CV 15.7 % (10.5-14.5); WBC 15.6 thou/uL (4.0-11.0)
[2021-07-27 00:53] LABS: CALCIUM 8.1 mg/dL (8.5-10.1); CREATININE 2.3 mg/dL (0.6-1.3); MAGNESIUM 2.5 mg/dL (1.8-2.4); POTASSIUM 4.6 mmol/L (3.5-5.1)
[2021-07-27 04:52] LABS: ABSOLUTE EOSINOPHILS 0.2 thou/uL (0.0-0.7); ABSOLUTE LYMPHOCYTES 0.3 thou/uL (0.8-5.3); ABSOLUTE MONOCYTES 0.4 thou/uL (0.0-1.2); ABSOLUTE NEUTROPHILS 13.3 thou/uL (1.6-8.1); BASOPHILS 0.1 %; EOSINOPHILS 1.4 %; HEMATOCRIT 24.4 % (42.0-52.0); HEMOGLOBIN 8.1 gm/dL (14.0-18.0); LYMPHOCYTES 1.8 %; MCH 28.1 pg (26.0-34.0); MCHC 33.1 g/dL (28.0-37.0); MCV 84.9 fL (80.0-100.0); MONOCYTES 2.7 %; MPV 8.4 fl. (7.2-11.1); NUCLEATED RBCS 0 /100WBC; PLATELET COUNT* 74 thou/uL (150-400); RBC 2.87 mil/uL (4.50-6.00); RDW-CV 15.6 % (10.5-14.5); WBC 14.2 thou/uL (4.0-11.0)
[2021-07-27 05:14] LABS: CALCIUM 8.2 mg/dL (8.5-10.1); MAGNESIUM 2.4 mg/dL (1.8-2.4); PHOSPHORUS* 2.9 mg/dL (2.5-4.9); POTASSIUM 4.6 mmol/L (3.5-5.1)
[2021-07-27 10:27] LABS: ABSOLUTE EOSINOPHILS 0.2 thou/uL (0.0-0.7); ABSOLUTE LYMPHOCYTES 0.3 thou/uL (0.8-5.3); ABSOLUTE MONOCYTES 0.3 thou/uL (0.0-1.2); ABSOLUTE NEUTROPHILS 11.1 thou/uL (1.6-8.1); BASOPHILS 0.1 %; EOSINOPHILS 1.6 %; HEMATOCRIT 23.9 % (42.0-52.0); HEMOGLOBIN 7.9 gm/dL (14.0-18.0); LYMPHOCYTES 2.7 %; MCH 28.3 pg (26.0-34.0); MCHC 33.2 g/dL (28.0-37.0); MCV 85.1 fL (80.0-100.0); MONOCYTES 2.9 %; MPV 8.6 fl. (7.2-11.1); NUCLEATED RBCS 0 /100WBC; PLATELET COUNT* 75 thou/uL (150-400); POLYS 92.7 %; RBC 2.81 mil/uL (4.50-6.00); RDW-CV 15.2 % (10.5-14.5)
[2021-07-27 10:51] LABS: CALCIUM 8.1 mg/dL (8.5-10.1); CREATININE 2.1 mg/dL (0.6-1.3); MAGNESIUM 2.4 mg/dL (1.8-2.4); POTASSIUM 4.5 mmol/L (3.5-5.1)
--- NOTE | 2021-07-27 12:14 | CON ---
[address] [address] CONSULTATION Name: JACLYN DISLA Room: [address] IN M.R.#: [id number] Admission: 07/18/21 Attend Phys: Elmer Andrade Discharge: Date of : 34 Report #: [id number] THIS REPORT FOR: cc: FAM - No family physician/PCP FAM - No family physician/PCP Bert Tam MD [facility] ~ DATE OF CONSULTATION: 07/26/2021 CARDIOLOGY CONSULTATION INDICATION: Bradycardia. HISTORY OF PRESENT ILLNESS: The patient is an 86-year-old gentleman who was admitted a little over a week ago for hernia repair. The patient's postoperative course has been complicated by worsening renal failure requiring CRRT and dialysis as well as acute respiratory failure, for which he is on the ventilator. He has had transient hypotension as well. Over the past 24 hours, the patient has been noted to have sinus bradycardia with heart rates as low as 33 and above. He has remained on pressors with stable blood pressure. He has no prior cardiac history. An echocardiogram during this hospitalization shows normal left ventricular systolic function and grade 1 diastolic dysfunction consistent with age. He has mild aortic stenosis. A 12-lead EKG currently shows sinus bradycardia without acute ST or T-wave abnormalities. Review of the labs shows the electrolytes to be stable. Presently, the patient is intubated and sedated. PAST MEDICAL HISTORY: From review of the chart: 1. Inguinal hernia, status post repair. 2. Chronic renal insufficiency. 3. Urethral stenosis, status post suprapubic catheter placement. 4. History of cystitis. 5. History of left pneumothorax. 6. Right femur fracture, remotely. 7. History of bladder tumor. SOCIAL HISTORY: Possible remote history of smoking, nothing recently. No known history of alcohol or drug abuse. ALLERGIES: None documented. FAMILY HISTORY: Noncontributory. CURRENT MEDICATIONS: [place] [address] CONSULTATION Name: JACLYN DISLA Room: [address]#: [id number] Admission: 07/18/21 Attend Phys: Elmer Andrade Discharge: Date of : 34 Report #: [id number] 1. Sliding scale insulin. 2. Protonix IV. 3. Fentanyl drip. 4. Levophed drip. 5. Subcutaneous heparin. REVIEW OF SYSTEMS: Unobtainable. PHYSICAL EXAMINATION: VITAL SIGNS: Blood pressure 131/36, pulse currently 52. GENERAL: This is a thin elderly male who is intubated and sedated. HEENT: Head is normocephalic, atraumatic. NECK: Shows no jugular venous distention. CHEST: Reveals diminished breath sounds without obvious wheezes. CARDIAC: Reveals regular rhythm with 2/6 systolic ejection murmur. I do not appreciate gallop. ABDOMEN: Reveals faint bowel sounds. EXTREMITIES: Shows no significant edema. SKIN: Dry and warm. Capillary refill appears to be appropriate. DIAGNOSTIC DATA: A 12-lead EKG shows sinus bradycardia with no significant ST segment or T-wave abnormality. LABORATORY DATA: Reviewed. Electrolytes appear stable. Chest x-ray shows some basilar atelectasis and some chronic lung disease and scarring. IMPRESSION AND RECOMMENDATIONS: 1. Sinus bradycardia. The patient has stable blood pressure, on Levophed drip at this time. I would like to add dopamine at 10 mcg per kilogram per minute in an effort to bring up heart rate slightly. Could titrate down Levophed if blood pressure becomes elevated. We will follow. Likely some element of vagal stimulation. 2. Respiratory failure. Presently intubated. Ventilator settings appear stable. He is oxygenating appropriately at this time. 3. Episode of shock, possibly septic. The patient's blood pressure is presently stable on moderate dose of Levophed. Adding dopamine for improved heart rate. We will follow. 4. Acute on chronic renal failure. [place] [address] CONSULTATION Name: JACLYN DISLA Room: [address] IN [facility]#: [id number] Admission: 07/18/21 Attend Phys: Elmer Andrade Discharge: Date of : 34 Report #: [id number] dialysis per Nephrology. 5. Status post right inguinal hernia repair. <ELECTRONICALLY SIGNED> By: Bert Tam MD, [facility] 07/27/21 1214 0937 JamiePacific Alliance Medical Centersultana Tam MD, [facility]ITALLynnette /nt
[2021-07-27 17:17] LABS: BE -2.1 mmol/L (-2 to +3); PCO2 40.2 mmHg (35.0-45.0); pH 7.374 (7.340-7.450)
[2021-07-27 17:51] LABS: ABSOLUTE EOSINOPHILS 0.1 thou/uL (0.0-0.7); ABSOLUTE LYMPHOCYTES 0.3 thou/uL (0.8-5.3); ABSOLUTE MONOCYTES 0.4 thou/uL (0.0-1.2); ABSOLUTE NEUTROPHILS 9.8 thou/uL (1.6-8.1); BASOPHILS 0.2 %; EOSINOPHILS 1.3 %; HEMATOCRIT 23.4 % (42.0-52.0); HEMOGLOBIN 7.8 gm/dL (14.0-18.0); LYMPHOCYTES 2.7 %; MCH 28.5 pg (26.0-34.0); MCHC 33.3 g/dL (28.0-37.0); MCV 85.7 fL (80.0-100.0); MONOCYTES 3.3 %; MPV 8.4 fl. (7.2-11.1); NUCLEATED RBCS 0 /100WBC; PLATELET COUNT* 82 thou/uL (150-400); POLYS 92.5 %; RBC 2.73 mil/uL (4.50-6.00); RDW-CV 15.6 % (10.5-14.5); WBC 10.5 thou/uL (4.0-11.0)
[2021-07-27 17:59] LABS: ALBUMIN 2.4 g/dL (3.4-5.0); CALCIUM 8.1 mg/dL (8.5-10.1); CREATININE 2.5 mg/dL (0.6-1.3); MAGNESIUM 2.5 mg/dL (1.8-2.4); POTASSIUM 4.5 mmol/L (3.5-5.1); TOTAL BILIRUBIN 1.2 mg/dL (<0.1-1.0); TOTAL PROTEIN 5.4 g/dL (6.4-8.2)
[2021-07-28] VITALS (13 sets, daily range): BP systolic 116–174; BP diastolic 34–48
[2021-07-28 06:12] LABS: ALBUMIN 2.4 g/dL (3.4-5.0); CALCIUM 7.9 mg/dL (8.5-10.1); CREATININE 2.9 mg/dL (0.6-1.3); POTASSIUM 4.3 mmol/L (3.5-5.1); TOTAL BILIRUBIN 1.5 mg/dL (<0.1-1.0); TOTAL PROTEIN 4.9 g/dL (6.4-8.2)
[2021-07-28 08:19] LABS: ABSOLUTE EOSINOPHILS 0.1 thou/uL (0.0-0.7); ABSOLUTE LYMPHOCYTES 0.4 thou/uL (0.8-5.3); ABSOLUTE MONOCYTES 0.5 thou/uL (0.0-1.2); ABSOLUTE NEUTROPHILS 8.2 thou/uL (1.6-8.1); BASOPHILS 0.2 %; EOSINOPHILS 0.7 %; HEMOGLOBIN 7.5 gm/dL (14.0-18.0); LYMPHOCYTES 4.1 %; MCH 28.7 pg (26.0-34.0); MCHC 33.8 g/dL (28.0-37.0); MCV 84.8 fL (80.0-100.0); MONOCYTES 5.3 %; MPV 7.8 fl. (7.2-11.1); NUCLEATED RBCS 0 /100WBC; PLATELET COUNT* 93 thou/uL (150-400); POLYS 89.7 %; RDW-CV 15.5 % (10.5-14.5); WBC 9.2 thou/uL (4.0-11.0)
[2021-07-28 08:46] LABS: CREATININE 3.1 mg/dL (0.6-1.3); MAGNESIUM 2.5 mg/dL (1.8-2.4); PHOSPHORUS* 2.6 mg/dL (2.5-4.9); POTASSIUM 4.2 mmol/L (3.5-5.1)
[2021-07-28 16:31] LABS: ABSOLUTE LYMPHOCYTES 0.2 thou/uL (0.8-5.3); ABSOLUTE MONOCYTES 0.4 thou/uL (0.0-1.2); ABSOLUTE NEUTROPHILS 8.8 thou/uL (1.6-8.1); BASOPHILS 0.4 %; EOSINOPHILS 0.4 %; HEMATOCRIT 23.1 % (42.0-52.0); HEMOGLOBIN 7.6 gm/dL (14.0-18.0); LYMPHOCYTES 1.8 %; MCH 28.3 pg (26.0-34.0); MCV 85.7 fL (80.0-100.0); MONOCYTES 3.8 %; MPV 8.2 fl. (7.2-11.1); NUCLEATED RBCS 0 /100WBC; PLATELET COUNT* 98 thou/uL (150-400); POLYS 93.6 %; RDW-CV 15.3 % (10.5-14.5); WBC 9.5 thou/uL (4.0-11.0)
[2021-07-28 16:41] LABS: ALBUMIN 2.2 g/dL (3.4-5.0); CALCIUM 8.1 mg/dL (8.5-10.1); CREATININE 3.4 mg/dL (0.6-1.3); MAGNESIUM 2.5 mg/dL (1.8-2.4); POTASSIUM 4.3 mmol/L (3.5-5.1); TOTAL BILIRUBIN 1.6 mg/dL (<0.1-1.0); TOTAL PROTEIN 5.7 g/dL (6.4-8.2)
[2021-07-29] VITALS (45 sets, daily range): BP systolic 83–214; BP diastolic 34–76
[2021-07-29 04:12] LABS: HEMATOCRIT 22.3 % (42.0-52.0); HEMOGLOBIN 7.3 gm/dL (14.0-18.0); MCHC 32.7 g/dL (28.0-37.0); MCV 85.4 fL (80.0-100.0); NUCLEATED RBCS 0 /100WBC; PLATELET COUNT* 115 thou/uL (150-400); RBC 2.61 mil/uL (4.50-6.00); RDW-CV 15.9 % (10.5-14.5); WBC 14.7 thou/uL (4.0-11.0)
[2021-07-29 04:18] LABS: CALCIUM 8.1 mg/dL (8.5-10.1); CREATININE 3.7 mg/dL (0.6-1.3); MAGNESIUM 2.6 mg/dL (1.8-2.4); PHOSPHORUS* 3.1 mg/dL (2.5-4.9); POTASSIUM 4.3 mmol/L (3.5-5.1)
[2021-07-29 04:50] LABS: ALBUMIN 1.9 g/dL (3.4-5.0); CREATININE 3.8 mg/dL (0.6-1.3); POTASSIUM 4.3 mmol/L (3.5-5.1); TOTAL BILIRUBIN 1.8 mg/dL (<0.1-1.0); TOTAL PROTEIN 5.5 g/dL (6.4-8.2)
[2021-07-29 05:35] LABS: ABSOLUTE EOSINOPHILS 0.1 thou/uL (0.0-0.7); ABSOLUTE LYMPHOCYTES 0.4 thou/uL (0.8-5.3); ABSOLUTE NEUTROPHILS 14.1 thou/uL (1.6-8.1)
[2021-07-29 05:41] LABS: HYPOCHROMASIA 1+; LARGE PLATELETS RARE; PLATELET ESTIMATE DECREASED
[2021-07-29 05:42] LABS: POLYCHROMASIA 1+
[2021-07-29 11:14] LABS: BE -0.6 mmol/L (-2 to +3); PCO2 33.6 mmHg (35.0-45.0); PO2 90.7 mmHg (75.0-100.0); pH 7.455 (7.340-7.450)
[2021-07-30] VITALS (60 sets, daily range): BP systolic 89–180; BP diastolic 34–84
[2021-07-30 06:49] LABS: MCH 27.9 pg (26.0-34.0); MCHC 32.6 g/dL (28.0-37.0); MCV 85.5 fL (80.0-100.0); MPV 8.2 fl. (7.2-11.1); NUCLEATED RBCS 0 /100WBC; PLATELET COUNT* 73 thou/uL (150-400); RDW-CV 15.8 % (10.5-14.5); WBC 12.3 thou/uL (4.0-11.0)
[2021-07-30 07:00] LABS: HEMOGLOBIN 6.4 gm/dL (14.0-18.0)
[2021-07-30 07:01] LABS: HEMATOCRIT 19.7 % (42.0-52.0)
[2021-07-30 07:27] LABS: ALBUMIN 1.9 g/dL (3.4-5.0); ALKALINE PHOSPHATASE 80 U/L (46-116); ANION GAP 10 mmol/L (7-16); BUN 41 mg/dL (7-18); CALCIUM 7.9 mg/dL (8.5-10.1); CHLORIDE 98 mmol/L (98-107); CO2 26 mmol/L (21-32); CREATININE 3.3 mg/dL (0.6-1.3); GLUCOSE 143 mg/dL (70-99); POTASSIUM 3.7 mmol/L (3.5-5.1); SGOT 18 U/L (15-37); SGPT < 6 U/L (30-65); SODIUM 134 mmol/L (136-145); TOTAL BILIRUBIN 1.1 mg/dL (<0.1-1.0); TOTAL PROTEIN 5.7 g/dL (6.4-8.2)
[2021-07-30 07:28] LABS: CALCIUM 7.8 mg/dL (8.5-10.1); CREATININE 3.2 mg/dL (0.6-1.3); MAGNESIUM 2.1 mg/dL (1.8-2.4); PHOSPHORUS* 2.7 mg/dL (2.5-4.9); POTASSIUM 3.6 mmol/L (3.5-5.1)
[2021-07-30 07:55] LABS: BE 1.6 mmol/L (-2 to +3); PCO2 36.9 mmHg (35.0-45.0); pH 7.456 (7.340-7.450)
[2021-07-30 08:00] LABS: PO2 51.4 mmHg (75.0-100.0)
[2021-07-30 09:02] LABS: ABSOLUTE LYMPHOCYTES 0.7 thou/uL (0.8-5.3); ABSOLUTE MONOCYTES 0.2 thou/uL (0.0-1.2); ABSOLUTE NEUTROPHILS 11.3 thou/uL (1.6-8.1); PLATELET ESTIMATE DECREASED
[2021-07-30 09:03] LABS: ANISOCYTOSIS 1+; POIKILOCYTOSIS 1+
--- NOTE | 2021-07-30 11:47 | PATH ---
[address] [address] PATHOLOGY RPT PROCEDURE Name: JACLYN JONES Room: [address] IN M.R.#: [id number] Admission: 07/18/21 Date of : 34 Discharge: Report #: [id number] Path Case #: [id number] [facility] Accession Number: [id number] . 01 Material submitted: . small bowel - SMALL BOWEL . 01 Clinical history: . LAPAROSCOPY- DIAGNOSTIC PERFORATED VISCUS RIGHT INGUINAL HERNIA . 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 - Surgical margins viable. (KACIE/db; 07/29/2021) LBQ 07/29/2021 1055 Local . 02 Electronically signed: . Sekou Martinez MD, Pathologist NPI- [id number] . 01 Gross description: . The specimen is received in formalin, labeled "Jaclyn Jones, small bowel" and consists of an unoriented segment of small bowel (8.5 cm in length by 2.0 cm in diameter) with up to 2.5 cm of attached fat. The serosa is [place], dusky and hemorrhagic with abundant fibrinous exudate and displays a transmural defect (inked blue, 1.9 x 1.5 cm) that comes to within 1.3 cm from the nearest staple line (inked red), and 6.1 cm from the opposing staple line (inked black). The specimen is opened to reveal unremarkable mucosa with normal intestinal folds. Horticultural Farmer sections are submitted as follows: A1: Surgical margins, submitted en face, represented A2: Section abutting the serosal defect, represented A3: Uninvolved mucosa and fat with overlying fibrous exudate, represented ([place]; 07/28/2021) DKA/DKA 07/28/2021 1147 Local . 02 Pathologist provided ICD-10: K65.8, K63.89 . 02 CPT . 298282 Specimen Comment: A courtesy copy of this report has been sent to [phone] Specimen Comment: Report sent to Specimen Comment: A duplicate report has been [place] [address] PATHOLOGY RPT PROCEDURE Name: JACLYN JONES Room: [address] ADM IN M.R.#: [id number] Admission: 07/18/21 Date of : 34 Discharge: Report #: [id number] Path Case #: [id number] updates. Performed at: 01 [facility] [place] [address], [place], [place] [id number] MD Regino Padilla MD Phone: [phone] Performed at: [address] [facility] [address] [place] [id number] MD Sekou Martinez MD Phone: [phone]
[2021-07-30 16:41] LABS: ABSOLUTE EOSINOPHILS 0.2 thou/uL (0.0-0.7); ABSOLUTE LYMPHOCYTES 0.4 thou/uL (0.8-5.3); ABSOLUTE MONOCYTES 0.9 thou/uL (0.0-1.2); ABSOLUTE NEUTROPHILS 12.1 thou/uL (1.6-8.1); BASOPHILS 0.3 %; EOSINOPHILS 1.5 %; HEMATOCRIT 23.6 % (42.0-52.0); HEMOGLOBIN 7.9 gm/dL (14.0-18.0); LYMPHOCYTES 2.6 %; MCH 28.4 pg (26.0-34.0); MCHC 33.3 g/dL (28.0-37.0); MCV 85.2 fL (80.0-100.0); MONOCYTES 6.3 %; MPV 8.1 fl. (7.2-11.1); NUCLEATED RBCS 0 /100WBC; PLATELET COUNT* 87 thou/uL (150-400); POLYS 89.3 %; RBC 2.77 mil/uL (4.50-6.00); RDW-CV 15.4 % (10.5-14.5); WBC 13.6 thou/uL (4.0-11.0)
[2021-07-31] VITALS (40 sets, daily range): BP systolic 81–188; BP diastolic 34–88
[2021-07-31 04:46] LABS: ABSOLUTE EOSINOPHILS 0.2 thou/uL (0.0-0.7); ABSOLUTE LYMPHOCYTES 0.4 thou/uL (0.8-5.3); ABSOLUTE MONOCYTES 0.9 thou/uL (0.0-1.2); ABSOLUTE NEUTROPHILS 11.1 thou/uL (1.6-8.1); BASOPHILS 0.2 %; EOSINOPHILS 1.5 %; HEMATOCRIT 23.4 % (42.0-52.0); HEMOGLOBIN 7.8 gm/dL (14.0-18.0); LYMPHOCYTES 3.4 %; MCH 28.7 pg (26.0-34.0); MCHC 33.1 g/dL (28.0-37.0); MCV 86.8 fL (80.0-100.0); MONOCYTES 7.4 %; MPV 8.3 fl. (7.2-11.1); NUCLEATED RBCS 0 /100WBC; PLATELET COUNT* 99 thou/uL (150-400); POLYS 87.5 %; RDW-CV 15.5 % (10.5-14.5); WBC 12.7 thou/uL (4.0-11.0)
[2021-07-31 04:58] LABS: ALBUMIN 1.6 g/dL (3.4-5.0); CALCIUM 7.7 mg/dL (8.5-10.1); CREATININE 3.8 mg/dL (0.6-1.3); POTASSIUM 3.6 mmol/L (3.5-5.1); TOTAL BILIRUBIN 1.1 mg/dL (<0.1-1.0); TOTAL PROTEIN 5.5 g/dL (6.4-8.2)
[2021-07-31 05:28] LABS: MAGNESIUM 2.2 mg/dL (1.8-2.4); PHOSPHORUS* 3.2 mg/dL (2.5-4.9)
[2021-07-31 08:37] LABS: BE -1.4 mmol/L (-2 to +3); PCO2 40.4 mmHg (35.0-45.0); pH 7.383 (7.340-7.450)
[2021-07-31 08:42] LABS: PO2 135.1 mmHg (75.0-100.0)
[2021-07-31 13:32] LABS: BE 4.2 mmol/L (-2 to +3); PCO2 41.5 mmHg (35.0-45.0); pH 7.454 (7.340-7.450)
[2021-07-31 13:36] LABS: PO2 128.5 mmHg (75.0-100.0)
[2021-08-01] VITALS (25 sets, daily range): BP systolic 87–165; BP diastolic 36–94
[2021-08-01 03:47] LABS: ABSOLUTE LYMPHOCYTES 0.2 thou/uL (0.8-5.3); ABSOLUTE MONOCYTES 0.3 thou/uL (0.0-1.2); ABSOLUTE NEUTROPHILS 7.1 thou/uL (1.6-8.1); BASOPHILS 0.2 %; HEMATOCRIT 22.8 % (42.0-52.0); HEMOGLOBIN 7.7 gm/dL (14.0-18.0); LYMPHOCYTES 2.3 %; MCH 29.1 pg (26.0-34.0); MCHC 33.9 g/dL (28.0-37.0); MCV 85.9 fL (80.0-100.0); MONOCYTES 4.4 %; MPV 8.6 fl. (7.2-11.1); NUCLEATED RBCS 0 /100WBC; PLATELET COUNT* 91 thou/uL (150-400); POLYS 93.1 %; RBC 2.65 mil/uL (4.50-6.00); RDW-CV 16.3 % (10.5-14.5); WBC 7.6 thou/uL (4.0-11.0)
[2021-08-01 04:01] LABS: CREATININE 2.9 mg/dL (0.6-1.3); MAGNESIUM 2.3 mg/dL (1.8-2.4); PHOSPHORUS* 3.5 mg/dL (2.5-4.9); POTASSIUM 3.9 mmol/L (3.5-5.1)
[2021-08-01 14:22] LABS: URINE BILIRUBIN NEGATIVE (Negative); URINE BLOOD 2+ (Negative); URINE CLARITY CLEAR; URINE COLOR YELLOW; URINE GLUCOSE-RANDOM 1+ (Negative); URINE KETONES NEGATIVE (Negative); URINE LEUKOCYTES-REFLEX 2+ (Negative); URINE NITRITE-REFLEX NEGATIVE (Negative); URINE PROTEIN 2+ (Negative); URINE UROBILINOGEN 0.2 E.U./dl (0.2-1.0)
[2021-08-01 14:26] LABS: YEAST-REFLEX Present (None Seen)
[2021-08-01 14:27] LABS: BACTERIA-REFLEX None Seen /HPF (None Seen); CASTS None Seen /LPF (None Seen); CRYSTALS None Seen /LPF (None Seen); URINE WBC-REFLEX 0-5 Rare /HPF (0-5)
[2021-08-01 14:44] LABS: SQUAMOUS 4-10 Moderate /LPF (0-3)
[2021-08-02] VITALS (23 sets, daily range): BP systolic 114–150; BP diastolic 40–63
[2021-08-02 04:58] LABS: MCH 28.8 pg (26.0-34.0); MCHC 33.5 g/dL (28.0-37.0); MCV 85.9 fL (80.0-100.0); MPV 8.5 fl. (7.2-11.1); NUCLEATED RBCS 0 /100WBC; PLATELET COUNT* 92 thou/uL (150-400); RBC 2.45 mil/uL (4.50-6.00); RDW-CV 16.4 % (10.5-14.5); WBC 7.5 thou/uL (4.0-11.0)
[2021-08-02 05:25] LABS: ALBUMIN 2.1 g/dL (3.4-5.0); CALCIUM 8.7 mg/dL (8.5-10.1); CREATININE 3.8 mg/dL (0.6-1.3); MAGNESIUM 2.5 mg/dL (1.8-2.4); TOTAL BILIRUBIN 0.7 mg/dL (<0.1-1.0); TOTAL PROTEIN 6.2 g/dL (6.4-8.2)
[2021-08-02 06:36] LABS: ABSOLUTE EOSINOPHILS 0.1 thou/uL (0.0-0.7); ABSOLUTE LYMPHOCYTES 0.8 thou/uL (0.8-5.3); ABSOLUTE MONOCYTES 0.2 thou/uL (0.0-1.2); ABSOLUTE NEUTROPHILS 6.5 thou/uL (1.6-8.1)
[2021-08-02 06:39] LABS: PLATELET ESTIMATE ADEQUATE
[2021-08-02 06:40] LABS: HYPOCHROMASIA 1+; OVALOCYTES 1+
[2021-08-02 10:06] LABS: % SATURATION 43 % (20-39); IRON 34 ug/dL (50-175)
--- NOTE | 2021-08-02 10:37 | CON ---
[address] [address] CONSULTATION Name: JACLYN DISLA Sil[place] Room: [address] ADM IN M.R.#: [id number] Admission: 07/18/21 Attend Phys: Elmer Andrade Discharge: Date of : 34 Report #: [id number] THIS REPORT FOR: cc: FAM - No family physician/PCP FAM - No family physician/PCP Shahla Franks DO ~ DATE OF CONSULTATION: 08/01/2021 NEUROLOGY CONSULT HISTORY OF PRESENT ILLNESS: The gentleman is an 86-year-old male who was admitted to the hospital on 07/18 for right inguinal hernia repair. During hospitalization, the patient's course became complicated with renal failure and bradycardia. The patient required intubation and was just extubated yesterday. The patient is unable to provide any history. The information is obtained from the record and from the nurse who is caring for him today. Apparently, the patient has altered mental status. Yesterday, he received 300 mcg of fentanyl. On 07/30, he received 200 mcg of fentanyl. The patient himself is unable to provide any history. His eyes are open, but he cannot get out any words. He does follow some simple commands. VITAL SIGNS: Temperature 36.4, pulse rate 81, respiratory rate 24, blood pressure 123/43, bedside pulse oximetry 100% on 3 liters. LABORATORY DATA: Hematology: White blood cell count 7.6, hemoglobin 7.7, hematocrit 22.8, MCV 85.9, platelet count 91. INR 1.1. Urinalysis dated 07/19 demonstrates 3+ protein, 3+ blood, trace leukocyte esterase. Chemistry: Sodium 135, potassium 3.9, chloride 99, carbon dioxide 25, BUN 42, creatinine 2.9, GFR 21, glucose 225, calcium 8, ionized calcium 4.7, phosphorus 3.5, magnesium 2.3, total bilirubin 1.1, AST 27, ALT 8, alkaline phosphatase 102, CK 23, total protein 5.5, albumin 1.6, prealbumin 7.0. Lipase 314. NEUROLOGIC: Pupils equally round and reactive to light. Extraocular movements appear intact. Facial expressions appear symmetrical. The patient is lying in bed and keeping his mouth open. He is turned onto his left side, so it is difficult for him to move his left arm. It is difficult to tell whether he has proximal extremity weakness; however, he has excellent patient safety sitter in both the right and left upper extremities. He is able to wiggle his toes and move his ankles dorsiflexion and plantar flexion. With tactile stimulation, he is able to slightly bring his legs up towards his chest. Reflexes are 1/4 in the upper extremities, 1/4 in lower extremities. Plantar responses are flexor. He cannot [facility] [address] [place] [address] CONSULTATION Name: JACLYN DISLA Room: [address] IN .R.#: [id number] Admission: 07/18/21 Attend Phys: Elmer Andrade Discharge: Date of : 34 Report #: [id number] cooperate with [id number]. IMPRESSION: This patient has altered mental status. He also may have generalized weakness. I have ordered an MRI of the head without contrast. If he cannot cooperate with that, then a CT of the head will be done instead. I have also ordered a TSH and B12. I would not give this gentleman fentanyl if at all possible as altered mental status can be secondary to drug effect. I would also recommend a repeat urinalysis as he had a mild urinary tract infection when he was admitted to the hospital. If the patient's strength does not improve, he will also need an MRI of the cervical spine. I did try to call his brother as listed on the face sheet, but the number did not work. If there is another number where I can contact the family member, I would be more than happy to speak with them to get an idea of what this patient's baseline was like prior to admission. I thank you for your kind referral of the patient and will continue to follow him with you. <ELECTRONICALLY SIGNED> By: Shahla Franks DO 08/02/21 1037 1227 [id number] Franks DO /nt
[2021-08-02 18:30] LABS: HEMATOCRIT 21.9 % (42.0-52.0); HEMOGLOBIN 7.3 gm/dL (14.0-18.0)
[2021-08-03] VITALS (35 sets, daily range): BP systolic 120–164; BP diastolic 44–84
[2021-08-03 05:35] LABS: ABSOLUTE LYMPHOCYTES 0.7 thou/uL (0.8-5.3); ABSOLUTE NEUTROPHILS 5.4 thou/uL (1.6-8.1); BASOPHILS 0.6 %; EOSINOPHILS 0.7 %; HEMATOCRIT 21.6 % (42.0-52.0); HEMOGLOBIN 7.2 gm/dL (14.0-18.0); LYMPHOCYTES 9.3 %; MCH 28.6 pg (26.0-34.0); MCHC 33.6 g/dL (28.0-37.0); MCV 85.2 fL (80.0-100.0); MONOCYTES 13.4 %; MPV 7.8 fl. (7.2-11.1); NUCLEATED RBCS 0 /100WBC; PLATELET COUNT* 53 thou/uL (150-400); RBC 2.53 mil/uL (4.50-6.00); RDW-CV 16.1 % (10.5-14.5); WBC 7.1 thou/uL (4.0-11.0)
[2021-08-03 05:48] LABS: PREALBUMIN 13.8 mg/dL (18.0-35.7)
[2021-08-03 05:51] LABS: CALCIUM 8.3 mg/dL (8.5-10.1); CREATININE 3.1 mg/dL (0.6-1.3); POTASSIUM 4.1 mmol/L (3.5-5.1); TOTAL BILIRUBIN 0.6 mg/dL (<0.1-1.0); TOTAL PROTEIN 6.3 g/dL (6.4-8.2)
[2021-08-03 18:14] LABS: HEMATOCRIT 22.2 % (42.0-52.0); HEMOGLOBIN 7.5 gm/dL (14.0-18.0)
[2021-08-04] VITALS (31 sets, daily range): BP systolic 146–173; BP diastolic 52–72
[2021-08-04 04:03] LABS: ABSOLUTE EOSINOPHILS 0.1 thou/uL (0.0-0.7); ABSOLUTE LYMPHOCYTES 0.6 thou/uL (0.8-5.3); ABSOLUTE MONOCYTES 0.9 thou/uL (0.0-1.2); ABSOLUTE NEUTROPHILS 5.7 thou/uL (1.6-8.1); BASOPHILS 0.4 %; EOSINOPHILS 0.8 %; HEMATOCRIT 22.7 % (42.0-52.0); HEMOGLOBIN 7.5 gm/dL (14.0-18.0); LYMPHOCYTES 7.9 %; MCH 28.7 pg (26.0-34.0); MCHC 33.2 g/dL (28.0-37.0); MCV 86.6 fL (80.0-100.0); MONOCYTES 12.7 %; MPV 8.7 fl. (7.2-11.1); NUCLEATED RBCS 0 /100WBC; PLATELET COUNT* 108 thou/uL (150-400); POLYS 78.2 %; RBC 2.62 mil/uL (4.50-6.00); RDW-CV 16.4 % (10.5-14.5); WBC 7.3 thou/uL (4.0-11.0)
[2021-08-04 04:45] LABS: ALBUMIN 2.1 g/dL (3.4-5.0); CALCIUM 8.7 mg/dL (8.5-10.1); MAGNESIUM 2.7 mg/dL (1.8-2.4); PHOSPHORUS* 4.1 mg/dL (2.5-4.9); POTASSIUM 4.5 mmol/L (3.5-5.1); TOTAL BILIRUBIN 0.6 mg/dL (<0.1-1.0)
[2021-08-04 04:50] LABS: CREATININE 4.2 mg/dL (0.6-1.3)
[2021-08-05] VITALS (45 sets, daily range): BP systolic 128–184; BP diastolic 35–93
[2021-08-05 04:54] LABS: ABSOLUTE BASOPHILS 0.1 thou/uL (0.0-0.2); ABSOLUTE EOSINOPHILS 0.1 thou/uL (0.0-0.7); ABSOLUTE LYMPHOCYTES 0.7 thou/uL (0.8-5.3); ABSOLUTE MONOCYTES 0.8 thou/uL (0.0-1.2); ABSOLUTE NEUTROPHILS 6.1 thou/uL (1.6-8.1); BASOPHILS 0.9 %; EOSINOPHILS 1.5 %; HEMOGLOBIN 7.5 gm/dL (14.0-18.0); LYMPHOCYTES 9.3 %; MCH 28.3 pg (26.0-34.0); MCHC 32.8 g/dL (28.0-37.0); MCV 86.4 fL (80.0-100.0); MONOCYTES 10.4 %; MPV 8.5 fl. (7.2-11.1); NUCLEATED RBCS 0 /100WBC; PLATELET COUNT* 178 thou/uL (150-400); POLYS 77.9 %; RBC 2.66 mil/uL (4.50-6.00); RDW-CV 16.9 % (10.5-14.5); WBC 7.8 thou/uL (4.0-11.0)
[2021-08-05 04:59] LABS: CALCIUM 9.3 mg/dL (8.5-10.1); MAGNESIUM 2.8 mg/dL (1.8-2.4); POTASSIUM 4.8 mmol/L (3.5-5.1)
[2021-08-05 05:27] LABS: CREATININE 5.3 mg/dL (0.6-1.3)
[2021-08-06] VITALS (14 sets, daily range): BP systolic 139–166; BP diastolic 51–81
[2021-08-06 07:43] LABS: ABSOLUTE BASOPHILS 0.1 thou/uL (0.0-0.2); ABSOLUTE EOSINOPHILS 0.2 thou/uL (0.0-0.7); ABSOLUTE LYMPHOCYTES 0.8 thou/uL (0.8-5.3); ABSOLUTE MONOCYTES 0.8 thou/uL (0.0-1.2); ABSOLUTE NEUTROPHILS 6.7 thou/uL (1.6-8.1); EOSINOPHILS 2.8 %; HEMATOCRIT 22.3 % (42.0-52.0); HEMOGLOBIN 7.3 gm/dL (14.0-18.0); LYMPHOCYTES 9.5 %; MCH 28.2 pg (26.0-34.0); MCHC 32.7 g/dL (28.0-37.0); MCV 86.3 fL (80.0-100.0); MONOCYTES 8.8 %; MPV 8.4 fl. (7.2-11.1); NUCLEATED RBCS 0 /100WBC; POLYS 77.9 %; RBC 2.58 mil/uL (4.50-6.00); RDW-CV 16.9 % (10.5-14.5); WBC 8.6 thou/uL (4.0-11.0)
[2021-08-06 07:47] LABS: PLATELET COUNT* 287 thou/uL (150-400)
[2021-08-06 07:54] LABS: CALCIUM 9.3 mg/dL (8.5-10.1); MAGNESIUM 2.6 mg/dL (1.8-2.4); PHOSPHORUS* 5.8 mg/dL (2.5-4.9); POTASSIUM 4.1 mmol/L (3.5-5.1)
[2021-08-06 08:00] LABS: CREATININE 6.3 mg/dL (0.6-1.3)
[2021-08-07 00:01] VITALS: BP 129/57
[2021-08-07 00:45] VITALS: BP 123/65
[2021-08-07 00:59] LABS: ABSOLUTE BASOPHILS 0.1 thou/uL (0.0-0.2); ABSOLUTE EOSINOPHILS 0.2 thou/uL (0.0-0.7); ABSOLUTE LYMPHOCYTES 0.6 thou/uL (0.8-5.3); ABSOLUTE MONOCYTES 0.6 thou/uL (0.0-1.2); ABSOLUTE NEUTROPHILS 8.3 thou/uL (1.6-8.1); BASOPHILS 0.9 %; EOSINOPHILS 1.8 %; HEMATOCRIT 22.8 % (42.0-52.0); HEMOGLOBIN 7.7 gm/dL (14.0-18.0); LYMPHOCYTES 6.1 %; MCH 28.8 pg (26.0-34.0); MCHC 33.6 g/dL (28.0-37.0); MCV 85.8 fL (80.0-100.0); MONOCYTES 6.3 %; MPV 7.7 fl. (7.2-11.1); NUCLEATED RBCS 0 /100WBC; PLATELET COUNT* 295 thou/uL (150-400); POLYS 84.9 %; RBC 2.66 mil/uL (4.50-6.00); WBC 9.7 thou/uL (4.0-11.0)
[2021-08-07 01:00] VITALS: BP 114/55
[2021-08-07 01:19] LABS: APTT 26.9 Seconds (25.0-31.3); INR 1.2; PROTIME 11.9 Seconds (9.20-11.50)
[2021-08-07 01:35] VITALS: BP 90/48
[2021-08-07 01:49] LABS: ALBUMIN 2.3 g/dL (3.4-5.0); CALCIUM 9.2 mg/dL (8.5-10.1); CREATININE 6.3 mg/dL (0.6-1.3); MAGNESIUM 2.4 mg/dL (1.8-2.4); POTASSIUM 4.4 mmol/L (3.5-5.1); TOTAL BILIRUBIN 0.6 mg/dL (<0.1-1.0); TOTAL PROTEIN 7.3 g/dL (6.4-8.2)
[2021-08-07 05:36] LABS: BE -7.9 mmol/L (-2 to +3); PCO2 38.7 mmHg (35.0-45.0)
[2021-08-07 05:38] LABS: PO2 50.9 mmHg (75.0-100.0); pH 7.287 (7.340-7.450)
--- NOTE | 2021-08-10 06:53 | CON ---
[address] [address] CONSULTATION Name: AJCLYN DISLA [place] Room: [address] IN M.R.#: [id number] Admission: 07/18/21 Attend Phys: Elmer Andrade Discharge: 08/07/21 Date of : 34 Report #: [id number] THIS REPORT FOR: cc: MILES - No family physician/PCP FAM - No family physician/PCP Jeanne Vasquez MD ~ DATE OF CONSULTATION: 07/20/2021 NEPHROLOGY CONSULTATION CONSULTING PHYSICIAN: Dr. Andrade. 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 REASON FOR ADMISSION: Right inguinal hernia repair. HISTORY OF PRESENT ILLNESS: This is an 86-year-old male who underwent repair of his right inguinal hernia on Wednesday, which is 07/18/[address] Andrade. Initially, plan is laparoscopic procedure was converted to an open procedure. He came in with a creatinine of 3.2. His baseline creatinine is around 2.8 to 2.9, but slowly his creatinine has gone up to 3.6 and eventually 3.7 today. He has also developed hyperkalemia, potassium was 5.4 when he came in, 5.5 yesterday and 5.8 today. He also has a suprapubic catheter because of his history of urethral meatal stenosis. Suprapubic catheter was replaced during the surgery and the patient was also started on Bactrim for some reason since the . He also has been receiving Zosyn. Nephrology has been consulted for hyperkalemia and worsening kidney function. The patient was complaining of severe right-sided abdominal pain yesterday and he was transferred to the ICU. Abdominal imaging did not show anything acute. Mild right hydronephrosis, which is better from before and kidneys were atrophic. No bladder leak. ALLERGIES: None. REVIEW OF SYSTEMS: As mentioned in history of present illness. He is also very hungry and otherwise 10-point review of systems done, negative. The patient is also very hard of hearing and he did not have his hearing aids. HOME MEDICATIONS: Include cholecalciferol, cyanocobalamin, and iron. PAST MEDICAL AND SURGICAL HISTORY: Includes hernia, renal insufficiency, history of renal failure in 1960s, urethral meatal stenosis. Has suprapubic catheter, left pneumothorax, status post left thoracotomy in the past. SOCIAL HISTORY: Does not smoke, drink alcohol [place] [address] CONSULTATION Name: JACLYN DISLA Room: [address]#: [id number] Admission: 07/18/21 Attend Phys: Elmer Andrade Discharge: 08/07/21 Date of : 34 Report #: [id number] FAMILY HISTORY: Noncontributory in this 86-year-old male. PHYSICAL EXAMINATION: VITAL SIGNS: Blood pressure is 125/52, temperature is 36.9, pulse rate is 105, respiratory rate is 17, pulse ox 98% on 2 liters of oxygen by nasal cannula. GENERAL: He is drowsy, but easily arousable, hard of hearing and does not have his hearing aids. Otherwise, alert and oriented x 3. HEAD AND EYES: Atraumatic and normocephalic. Conjunctivae are normal. EARS, NOSE, AND THROAT: Normal ears, nose. Mucous membranes are moist. NECK: No JVD. CHEST: Bilaterally diminished breath sounds. No crackles heard anteriorly. CARDIOVASCULAR: S1, S2 normal and no murmurs. ABDOMEN: Soft, nondistended. Suprapubic catheter in place. Incisional tenderness present. LOWER EXTREMITIES: There is no lower extremity edema. NEUROLOGIC: Function grossly intact. PSYCHIATRIC: Mood and affect seems to be normal. LABORATORY DATA: WBC 11.7, hemoglobin is 11.4. Sodium is 136, potassium is 5.8, CO2 is 21, BUN 62, creatinine 3.7 which is up from 3.6 and other labs are reviewed. IMAGING: Chest x-ray, pelvic CT, abdominal and pelvic CT scan were reviewed. ASSESSMENT: 1. Acute kidney injury on chronic kidney disease stage 4. He came in with a creatinine of 3.2, creatinine has gone up to 3.7 and baseline creatinine is 2.8-2.9. This is in the setting of Bactrim use and some intravascular volume depletion. Renal imaging showed improving right-sided hydronephrosis and both bilateral kidneys are atrophic. He has a suprapubic catheter as well, which was replaced during the surgery. UA showed 3+ protein, 3+ blood, greater than 20 rbc's per high power field, but the specimen was from his suprapubic catheter. 2. Hyperkalemia in the setting of worsening renal function, volume depletion and use of Bactrim. 3. Non-gap metabolic acidosis. 4. Right inguinal hernia, status post herniorrhaphy, laparoscopic turned into open repair, this was on 07/18/2021 and Surgery is following. 5. History of urethral meatal stenosis, has a suprapubic catheter, which was replaced during the surgery on 07/18/2021. PLAN: 1. Currently, nonoliguric acute kidney injury in the setting of Bactrim use, some volume depletion. [address] [address] CONSULTATION Name: JACLYN DISLA Room: [address] IN M.R.#: [id number] Admission: 07/18/21 Attend Phys: Elmer Andrade Discharge: 08/07/21 Date of : 34 Report #: [id number] 2. Bactrim will need to be stopped. Please use alternative if he still needs another antibiotic in addition to Zosyn. 3. Consider starting him on a diet. If started on diet should be renal diet. 4. Morphine has been switched to Dilaudid because morphine should be avoided in the setting of renal insufficiency to avoid neurotoxicity. 5. Check morning labs and discussed with the patient and the patient's nurse and will follow with you. <ELECTRONICALLY SIGNED> By: Jeanne Vasquez MD 08/10/21 0653 0657 [id number] Vasquez MD /nt
--- NOTE | 2021-08-25 12:28 | D ---
[facility] [address] [place] [address] DISCHARGE SUMMARY Name: JACLYN DISLA Room: [address] IN M.R.#: [id number] Admission: 07/18/21 Attend Phys: Elmer Andrade Discharge: 08/07/21 Date of : 34 Report #: [id number] THIS REPORT FOR: cc: FAM - No family physician/PCP FAM - No family physician/PCP Elmer Andrade MD ~ DATE OF DISCHARGE: 08/07/2021 PRINCIPAL DIAGNOSES: 1. Right inguinal hernia. 2. Small bowel perforation. PROCEDURES: 1. Laparoscopic converted to open right inguinal hernia repair on 07/18/2021. 2. Exploratory laparotomy with small bowel resection and ileostomy on 07/24/2021. HISTORY OF PRESENT ILLNESS: This is an 86-year-old man who was admitted after his right inguinal hernia repair. HOSPITAL COURSE: The patient was admitted to the floor. He had abdominal pain on the second and third days after the surgery and he underwent a CT scan of the abdomen and pelvis with a CT cystogram. This did not demonstrate any leak from the bladder. This did not demonstrate any evidence of small bowel perforation. He continued to have pain and a repeat CT was ordered on 07/24. This demonstrated free air in the abdomen. He underwent exploratory laparotomy. This demonstrated a small bowel perforation. This segment was resected and an ileostomy was then brought out. He was then treated in the ICU for the next 2 weeks. He did make good steady progress. He was able to be extubated. However, plans were even made to place a PEG, so that he could go to an LTAC. However, on day of discharge, he had sudden onset of tachypnea and low oxygen saturations. He was placed on BiPAP. There was some concern that he may have had a PE. Pulmonary was following. His O2 sats continued to decline. He was DNR/DNI and therefore was not intubated. He then . <ELECTRONICALLY SIGNED> By: Elmer Adnrade MD 08/25/21 1228 0943 [id number] Andrade MD /nt
== END 2021-08-07 06:54 | DRG 329 ==
LOC: M.SUR 06:07 → M.TBA 10:17 → M.3W 14:02 → M.ICU 15:14 → M.ORTHSURG 15:14 → M.3W 07-19 16:35 → M.ICU 07-19 17:58 → M.ORTHSURG 07-20 18:06 → M.ICU 07-24 22:35
PROVIDERS: Internal Medicine; Internal Medicine Critical Care Medicine; Internal Medicine Nephrology; Psychiatry & Neurology Neurology; ADMIT Surgery; ATTEND Surgery
DX: K40.90 Unilateral inguinal hernia, without obstruction or gangrene, not specified as recurrent (principal); A41.9 Sepsis, unspecified organism; N17.0 Acute kidney failure with tubular necrosis; J96.01 Acute respiratory failure with hypoxia; K63.1 Perforation of intestine (nontraumatic); R65.21 Severe sepsis with septic shock; E43 Unspecified severe protein-calorie malnutrition; J69.0 Pneumonitis due to inhalation of food and vomit; K56.609 Unspecified intestinal obstruction, unspecified as to partial versus complete obstruction; N18.4 Chronic kidney disease, stage 4 (severe); E87.2 Acidosis; G93.40 Encephalopathy, unspecified; E87.5 Hyperkalemia; E87.6 Hypokalemia; D64.9 Anemia, unspecified; F41.9 Anxiety disorder, unspecified; R62.7 Adult failure to thrive; I95.9 Hypotension, unspecified; D69.6 Thrombocytopenia, unspecified; Z68.21 Body mass index [BMI] 21.0-21.9, adult; Z87.891 Personal history of nicotine dependence; Z87.81 Personal history of (healed) traumatic fracture; Z28.21 Immunization not carried out because of patient refusal